=== PATIENT | female | born 1950 | race Caucasian/White ===

== ENCOUNTER 2025-02-23 08:06 | Observation (INO) ==
--- NOTE | 2025-01-24 14:16 | PAT Medication Instructions ---
Medication Instructions Date of Service January 24, 2025 Home Medications Medication Instructions Recorded celecoxib 100 mg capsule (Celebrex) 100 mg PO BID #60 caps 01/04/25 oxycodone 5 mg tablet 5 mg PO Q6 PRN pain #30 tabs 01/17/25 cholecalciferol (vitamin D3) 25 mcg (1,000 unit) tablet 1,000 units PO QAM fluoxetine 40 mg capsule (Prozac) 40 mg PO QAM hydroxyzine HCl 50 mg tablet 100 mg PO HS baclofen 20 mg tablet 40 mg PO HS fluoxetine 20 mg capsule 20 mg PO QAM rosuvastatin 10 mg tablet 40 mg PO QAM spironolactone 50 mg tablet 50 mg PO UD hydrochlorothiazide 25 mg tablet 25 mg PO BID PRN swelling celecoxib 100 mg capsule (Celebrex) 100 mg PO BID oxycodone 5 mg tablet 5 mg PO Q6 PRN pain lorazepam 0.5 mg tablet 0.25 mg PO DAILY PRN Anxiety Continue as directed lorazepam 0.5 mg tablet 0.25 mg PO DAILY PRN Anxiety (if needed) ASK your surgeon for instructions celecoxib 100 mg capsule (Celebrex) 100 mg PO BID DO NOT take the morning of surgery cholecalciferol (vitamin D3) 25 mcg (1,000 unit) tablet 1,000 units PO QAM hydrochlorothiazide 25 mg tablet 25 mg PO BID PRN swelling spironolactone 50 mg tablet 50 mg PO UD Take morning of surgery With a small sip of water, OTHERWISE NOTHING TO EAT OR DRINK AFTER MIDNIGHT: fluoxetine 40 mg capsule (Prozac) 40 mg PO QAM fluoxetine 20 mg capsule 20 mg PO QAM rosuvastatin 10 mg tablet 40 mg PO QAM oxycodone 5 mg tablet 5 mg PO Q6 PRN pain (if needed) Take evening before surgery hydroxyzine HCl 50 mg tablet 100 mg PO HS baclofen 20 mg tablet 40 mg PO HS hydrochlorothiazide 25 mg tablet 25 mg PO BID PRN swelling (if needed) oxycodone 5 mg tablet 5 mg PO Q6 PRN pain (if needed) Other Notes If you have any questions please call us at [phone] or [phone] or [phone] or [phone]
--- NOTE | 2025-01-26 12:17 | Anesthesiology Consultation ---
Date of Service January 26, 2025 Assessment & Plan (1) Encounter for pre-operative examination: - awaiting 01/29/25 S PCP note. Chart Review Chart Review: Pending: Refer to Additional Notes / Consult section and Patient seen in Pre Admission Testing Teaching & Discussion Pre-Anesthesia Teaching/Discussion Notes: Instructed NPO after midnight before surgery, except medications with 15 cc of water. Medication instructions provided according to the PAT guidelines. History Surgery Operation Date: 02/16/25 13:00 Proposed Procedures p Left Total Knee Arthroplasty - Harvey Oliva, Height/Weight Height: 5 ft 5 in Weight: 77.3 kg Allergies Allergy/AdvReac Type Severity Reaction Status Date / Time adhesive Allergy Intermediate Rash Verified 01/26/25 12:15 buspirone Allergy Intermediate rash, Verified 01/26/25 12:15 flushing codeine Allergy Intermediate itching, Verified 01/24/25 13:21 anxiety amoxicillin Allergy Mild itching, Verified 01/26/25 12:15 nausea and vomiting clavulanic acid Allergy Mild itching, Verified 01/26/25 12:15 nausea and vomiting latex Allergy Mild itching at Verified 01/24/25 13:21 site quinine Allergy Mild itching, Verified 01/26/25 12:15 nausea and vomiting Quinolones Allergy Mild itching, Verified 01/26/25 12:16 nausea and vomiting sulfamethoxazole Allergy Mild itching, Verified 01/26/25 12:15 nausea, vomiting, anxiety trimethoprim Allergy Mild itching, Verified 01/26/25 12:15 nausea, vomiting, anxiety venlafaxine Allergy Mild rash, Verified 01/26/25 12:15 flushing shellfish derived AdvReac Intermediate VIOLENTLY Verified 01/24/25 13:21 ILL atorvastatin AdvReac Mild arthralgias Verified 01/26/25 12:15 Medications Home Medications Medication Instructions Recorded Confirmed Last Taken cholecalciferol (vitamin D3) 25 1,000 units PO QAM 06/10/19 01/24/25 07/20/21 mcg (1,000 unit) tablet fluoxetine 40 mg capsule (Prozac) 40 mg PO QAM 07/15/21 01/24/25 06/12/22 06:00 hydroxyzine HCl 50 mg tablet 100 mg PO HS 07/15/21 01/24/25 06/11/22 21:00 baclofen 20 mg tablet 40 mg PO HS 04/25/22 01/24/25 06/11/22 21:00 fluoxetine 20 mg capsule 20 mg PO QAM 04/25/22 01/24/25 06/12/22 06:00 rosuvastatin 10 mg tablet 40 mg PO QAM 04/25/22 01/24/25 06/11/22 21:00 hydrochlorothiazide 25 mg tablet 25 mg PO BID PRN swelling 05/15/24 01/24/25 Unknown oxycodone 5 mg tablet 5 mg PO Q6 PRN pain #30 tabs 01/17/25 01/24/25 Unknown lorazepam 0.5 mg tablet 0.25 mg PO DAILY PRN Anxiety 01/24/25 01/24/25 Unknown ibuprofen 100 mg tablet 200 mg PO Q6H PRN Pain 01/26/25 01/26/25 Unknown Past Medical History Medical History (Updated 01/26/25 @ 12:46 by Lilibeth Kirby PA-C) Cough inhaler was prescribed for this, no asthma dx Degenerative disc disease Depression Fluid retention in legs prn HCTZ-last use several days ago with resolution GERD (gastroesophageal reflux disease) infrequent-diet correlation per pt History of anesthesia complications awareness during colonoscopy-patient notes she is naturally a red-head Hyperlipidemia Loss of smell 2 months ago-reports PCP felt nothing additional was needed Osteoarthritis Overactive bladder Palpitations hx of > anxiety related > no further issues Prediabetes no meds Scoliosis Seasonal allergies Patient denies h/o stroke, seizures, heart attack, heart failure, HTN, blood clots/DVTs or blood transfusions. Exercise / Class Metabolic Activity III < 4 Walking/Shop/Light housework (denies chest discomfort or shortness of breath with usual activities) Past Family History Family History Sister Breast cancer Lung cancer Family history of diabetes mellitus Mother Osteoporosis Hypertension Father Hypertension Other No family history of adverse response to anesthesia Denies family history of Colon cancer Ovarian cancer Prostate cancer Past Surgical History Surgical History H/O colonoscopy History of anesthesia reaction awareness during colonoscopy History of cholecystectomy History of hysterectomy History of reverse total replacement of right shoulder joint (05/2022) History of surgery of liver cyst removed from liver-benign per pt History of tonsillectomy and adenoidectomy History of tooth extraction Past Anesthesia History No Family Hx of Anesthesia Complications History of PONV No Hx of PONV and Hx of Motion Sickness Social History Smoking Status: Former smoker tobacco type: cigarettes Do You Dip or Chew Tobacco: No Smoking End Date: 1984 Hx Alcohol Use: No Alcohol type: hard liquor alcohol intake frequency: holidays/special occasions only Hx Substance Use: No substance use type: does not use Review of Systems Patient denies chest pain, shortness of breath, dyspnea on exertion, snoring, witnessed apneas, fever, chills, cough, wheezing, or palpitations. Physical Exam Vital Signs Vitals BP 126/71 P 84 TEMP 98.0 SP02 95% on RA RESP 18 Physical Patient resting comfortably in chair in no acute distress, alert and oriented, responding appropriately throughout visit Full cervical extension range of motion without pain TMD 3.5 finger breadths Mallampati Score 2 Dentition: partial tooth left upper side and several crowns, denies chipped or loose teeth, implants or bridges Lungs: normal respiratory effort. Good air movement, clear throughout to auscultation, no adventitious breath sounds Cardiac: regular rate and rhythm, no murmurs noted Carotid arteries: negative bruit bilat Lab Results Anesthesia Preop Results Results Anesthesia Widget: WBC 7.43 K/ul (4.8-10.8) 01/26/25 Hgb 13.1 g/dl (12.0-16.0) 01/26/25 Hct 38.8 % (37.0-47.0) 01/26/25 Plt 269 K/uL (130-400) 01/26/25 Na 142 mmol/L (136-145) 01/26/25 K 4.2 mmol/L (3.5-5.1) 01/26/25 Cl 104 mmol/L (98-107) 01/26/25 CO2 30 mmol/L (21-32) 01/26/25 BUN 24 mg/dl (6-23) H 01/26/25 Creat 0.88 mg/dl (0.6-1.2) 01/26/25 Glucose Level 86 mg/dl (70-99(Fasting)) 01/26/25 PT 10.3 Seconds (9.0-12.0) 01/26/25 PTT 26 Seconds (21-31) 01/26/25 INR 0.9 (0.9-1.1) 01/26/25 Blood Type O Positive 01/26/25 Antibody Screen NEGATIVE 01/26/25 Testing Electrocardiogram Date: 01/26/25 NSR, rate 78 bpm Old anterolateral infarct cited on or before 05/15/24 EKG No significant change vs 05/15/24 EKG Chest X-Ray Date: 01/26/25 No active lung lesion noted. No other abnormalities noted. Echocardiogram Date: 07/13/23 EF 60-64% Normal LV wall motion Grade I diastolic dysfunction Mild aortic valve sclerosis, no aortic stenosis Mild tricuspid regurgitation Borderline cLVH Other Testing Head and neck CTA 05/15/24 Unremarkable CTA of the neck. No large vessel occlusion. No intracranial aneurysm.
--- NOTE | 2025-02-21 12:20 | History & Physical Report ---
Date of Service February 21, 2025 Assessment & Plan (1) Osteoarthritis of left knee: We will proceed with a left total knee arthroplasty. Postoperatively, she will be started on aspirin for DVT prophylaxis and kept overnight in the hospital for postop medical management. She plans to use energy physical therapy upon discharge. History of Present Illness Chief Complaint: Osteoarthritis of the left knee Primary Care Provider: Ginacaron YinDO Rodriguez is a pleasant 75-year-old female who has been dealing with chronic increasing left knee pain. X-ray showed some lateral compartmental arthritis. She is really struggling with lateral joint line pain. She recently lost her mother and her sister. She has been dealing with estate sales. She had injections of her knee with minimal relief. She is to the point where she is almost nonambulatory. She was sent for an MRI. The MRI shows advanced osteoarthritis mostly in the lateral compartment of the left knee. After failed conservative treatment, she has elected to proceed with a left total knee arthroplasty. Allergies Allergy/AdvReac Type Severity Reaction Status Date / Time adhesive Allergy Intermediate Rash Verified 01/26/25 12:15 buspirone Allergy Intermediate rash, Verified 01/26/25 12:15 flushing codeine Allergy Intermediate itching, Verified 01/24/25 13:21 anxiety amoxicillin Allergy Mild itching, Verified 01/26/25 12:15 nausea and vomiting clavulanic acid Allergy Mild itching, Verified 01/26/25 12:15 nausea and vomiting latex Allergy Mild itching at Verified 01/24/25 13:21 site quinine Allergy Mild itching, Verified 01/26/25 12:15 nausea and vomiting Quinolones Allergy Mild itching, Verified 01/26/25 12:16 nausea and vomiting sulfamethoxazole Allergy Mild itching, Verified 01/26/25 12:15 nausea, vomiting, anxiety trimethoprim Allergy Mild itching, Verified 01/26/25 12:15 nausea, vomiting, anxiety venlafaxine Allergy Mild rash, Verified 01/26/25 12:15 flushing shellfish derived AdvReac Intermediate VIOLENTLY Verified 01/24/25 13:21 ILL atorvastatin AdvReac Mild arthralgias Verified 01/26/25 12:15 Home Medications Medication Instructions Recorded Confirmed Type cholecalciferol (vitamin D3) 25 1,000 units PO QAM 06/10/19 01/24/25 History mcg (1,000 unit) tablet fluoxetine 40 mg capsule (Prozac) 40 mg PO QAM 07/15/21 01/24/25 History hydroxyzine HCl 50 mg tablet 100 mg PO HS 07/15/21 01/24/25 History baclofen 20 mg tablet 40 mg PO HS 04/25/22 01/24/25 History fluoxetine 20 mg capsule 20 mg PO QAM 04/25/22 01/24/25 History rosuvastatin 10 mg tablet 40 mg PO QAM 04/25/22 01/24/25 History hydrochlorothiazide 25 mg tablet 25 mg PO BID PRN swelling 05/15/24 01/24/25 History oxycodone 5 mg tablet 5 mg PO Q6 PRN pain #30 tabs 01/17/25 01/24/25 Rx lorazepam 0.5 mg tablet 0.25 mg PO DAILY PRN Anxiety 01/24/25 01/24/25 History ibuprofen 100 mg tablet 200 mg PO Q6H PRN Pain 01/26/25 01/26/25 History phentermine 37.5 mg tablet 37.5 mg PO DAILY 01/31/25 01/31/25 History Past Med/Surg History Problem List Encounter for pre-operative examination Greater trochanteric bursitis of both hips DJD (degenerative joint disease), lumbar Scoliosis Degenerative disc disease Bilateral hip pain Back pain Mixed hyperlipidemia Metabolic syndrome Depression with anxiety Palpitations Hyperlipidemia Obesity (Chronic) Hair loss Medical History Loss of smell 2 months ago-reports PCP felt nothing additional was needed GERD (gastroesophageal reflux disease) infrequent-diet correlation per pt History of anesthesia complications awareness during colonoscopy-patient notes she is naturally a red-head Hyperlipidemia Prediabetes no meds Osteoarthritis Palpitations hx of > anxiety related > no further issues Cough inhaler was prescribed for this, no asthma dx Scoliosis Degenerative disc disease Overactive bladder Depression Fluid retention in legs prn HCTZ-last use several days ago with resolution Seasonal allergies Surgical History History of reverse total replacement of right shoulder joint (05/2022) History of anesthesia reaction awareness during colonoscopy History of tooth extraction History of tonsillectomy and adenoidectomy H/O colonoscopy History of cholecystectomy History of surgery of liver cyst removed from liver-benign per pt History of hysterectomy Family History Sister Breast cancer Lung cancer Family history of diabetes mellitus Mother Osteoporosis Hypertension Father Hypertension Other No family history of adverse response to anesthesia Denies family history of Colon cancer Ovarian cancer Prostate cancer Social History Smoking Status: Former smoker Tobacco Type: Cigarettes Smoking End Date: 1984; Second Hand Exposure: No; Do You Dip or Chew Tobacco: No; Tobacco Cessation Education Requested by Patient: No Hx Alcohol Use: No Hx Substance Use: No Preferred Language: Romanian Communication Ability: Effective Visual Impairment: Limited Hearing Ability: Normal Etl Data Architect Required: No Beliefs That Will Affect Care: None marital status: Current Living Situation: Spouse current occupational status: retired Other Information That Helps Us Care for You: No Feels Safe at Home: Yes Safety Concerns: Feels Safe At This Time caffeine: Yes Dental Care, Regularly: Yes Physical Activity Frequency: Does not Exercise Seatbelt Use: always Sunscreen Use: Yes Assistive Devices: Denture - Upper and Glasses Assistive Devices Comment: partial upper denture Review of Systems All systems reviewed & are unremarkable except as noted in HPI & below. Physical Exam On physical exam of the left knee, she has slight varus deformity. Tenderness palpation of the distal lateral femoral condyle and over the lateral joint line.. Constitutional WD/WN, vitals as above Eyes PERRL, conjunctivae normal, anicteric sclerae ENMT external ear and nose normal, oropharynx normal Neck trachea midline, no thyromegaly Respiratory normal respiratory effort Cardiovascular RRR, no murmur, no edema Gastrointestinal (Abdomen) normal bowel sounds, soft, nontender, no hepatosplenomegaly Psychiatric A+Ox3, euthymic affect Results & Data Results & Data Laboratory Results . Diagnostic Findings MRI of the left knee shows advanced lateral compartmental arthritis with joint space narrowing osteophyte formation.. PG Care Time/CCT Total # of Minutes Spent Total Time Spent with Patient: Total time spent is greater than 50% in coordination of care (as documented) at patient's floor/unit and/or counseling patient: Coding Level of Care Code None Diagnoses Osteoarthritis of left knee M17.12
[~2025-02-23 08:06] MED LIST: ACETAMINOPHEN 500 MG TAB PO SCH; ALLERGY Noted to ORDERED Medication SCH; BUPIVACAINE 0.5 % 5 MG/1 ML PF 10ML VIAL ONE; FAMOTIDINE 20 MG TAB PO SCH; GABAPENTIN 300 MG CAP PO SCH; LR 500ML BOLUS, THEN 15ML/HR IV SCH; LR 60ML/HR IV SCH; ROPIV 0.5% 246mg, Ketorolac 30mg, EPINEPHrine 0.5mg in NSS INFIL SCH; ROPIVACAINE 0.5% 5 MG/ML 30 ML VIAL ONE; TRANEXAMIC ACID 1,000 MG **IV Intra-op IV SCH; TRANEXAMIC ACID 1,000 MG **IV Pre-op IV SCH; dexAMETHasone**PF** 10 MG/ML VIAL IV SCH
--- OUTSIDE RECORDS SUMMARY | 2025-02-23 08:41 | External Medical Summary ---
Author Name Unknown Address Unknown Organization [id number]:[facility] [place] [address] [place] [address] Laboratory Report Ordering Provider Test Date Status ROMINA DC 02/16/2025 08:19:39 Final Observation Date Value Abnormality Reference (Units ) Status Vitamin B12 02/16/2025 08:19:39 [id number] (pg/mL) Final Performing Location [facility] [place] [address] [place] [id number]
--- OUTSIDE RECORDS SUMMARY | 2025-02-23 08:41 | External Medical Summary | Summary of Care ---
Author Name Unknown Organization [facility] Address [address] [facility] [place] [place] [address] Phone [phone] Care Team Providers Care Senior Supply Chain Analyst Name Role Phone Gina Yin DO Primary Care Provider [phone] Reason for Visit * Reason Comments Acute Reports she was to [facility] surgery this AM but fell sick a couple days ago. This started TuesdayNausea, loss of appetite, heart palpitations, sweating, lightheaded, some SOB. Encounter Details Date Type Department Care Team (Late st Contact Info) Description 02/16/2025 7:20 AM EDT Office Visit Family [facility] [place] [address] [facility] [place] [address] Gina Yin DO [address] [place] [address] Nausea*; Loss of taste; Palpitations; Dry mouth Allergies Active Allergy Reactions Criticality Noted Date Comments Adhesive Tape Low 06/12/2022 Other reaction(s): LOCAL SKIN IRRITATIONS Alpha Neeta Quinazolines 5 Amoxicillin Low 06/12/2022 Other reaction(s): ITCHING, N&V Atorvastatin Low 06/12/2022 Other reaction(s): JOINT PAIN Buspirone 11/10/2004 Epinephrine Hcl (Racemic) 11/21/2004 Latex Low 06/12/2022 Other reaction(s): itching at site Macrolides And Ketolides 11/21/2004 Methylparaben 11/10/2004 Morphine And Codeine 11/21/2004 Quinolones Low 06/12/2022 Other reaction(s): ITCHINESS, N&V Shellfish-Derived Products High Other reaction(s): VIOLENTLY ILL Sulfonylureas 11/21/2004 sulfa drugs, bactrim nausea Tetracyclines & Related 11/21/2004 Venlafaxine 12/03/2004 documented as of this encounter (statuses as of 02/16/2025) Medications Multiple Vitamins-Minerals (HAIR SKIN AND NAILS FORMULA) TABS Take 1 Tab by mouth daily. Active Vitamin D 50 MCG (2000 UT) Oral Capsule Take 1 Capsule by mouth in the morning. Active Magnesium 100 MG Oral Capsule Take 1 Capsule by mouth in the morning. Active Clobetasol Propionate 0.05 % External Ointment (Temovate)Indicati ons:Nail dystrophy,Hand dermatitis Apply to skin around fingernails twice daily for two weeks, then apply once daily every Wednesday, Wednesday, Wednesday 60 g 5 11/03/19 24 Active hydroCHLOROthiazid e 25 MG Oral Tablet (Hydrodiuril)Indic ations:Leg swelling Take 1 Tablet by mouth 2 times a day in the morning and at bedtime as needed for Other (swelling). 90 Tablet 3 01/13/20 24 Active FLUoxetine HCl 20 MG Oral Capsule (PROzac)Indication s:JAYLEN (generalized anxiety disorder) TAKE ONE CAPSULE BY MOUTH EVERY MORNING. 90 Capsule 2 06/15/20 24 Active FLUoxetine HCl 40 MG Oral Capsule (PROzac)Indication s:JAYLEN (generalized anxiety disorder) Take 1 Capsule by mouth daily. Total dose is 60mg daily 90 Capsule 2 06/15/20 24 Active Rosuvastatin Calcium 40 MG Oral Tablet (Crestor)Indicatio ns:Mixed hyperlipidemia TAKE 1 TABLET BY MOUTH EVERY MORNING 90 Tablet 1 08/25/20 24 Active traMADol HCl 50 MG Oral Tablet (Ultram)Indication s:Chronic pain of left knee Take 1 Tablet by mouth every 8 hours as needed for Pain, Severe. 30 Tablet 01/11/20 25 Active hydrOXYzine Pamoate 50 MG Oral Capsule (Vistaril)Indicati ons:JAYLEN (generalized anxiety disorder) TAKE TWO CAPSULES BY MOUTH DAILY AT BEDTIME 180 Capsule 01/17/20 25 Active Baclofen 20 MG Oral TabletIndications: JAYLEN (generalized anxiety disorder) TAKE ONE TABLET IN THE MORNING AND 1 AT BEDTIME 180 Tablet 01/17/20 25 Active Phentermine HCl 37.5 MG Oral CapsuleIndications :Class 1 obesity without serious comorbidity with body mass index (BMI) of 30.0 to 30.9 in adult, unspecified obesity type Take 1 Capsule by mouth in the morning. 30 Capsule 02/08/20 25 Active Topiramate 25 MG Oral Tablet (Topamax)Indicatio ns:Class 1 obesity without serious comorbidity with body mass index (BMI) of 30.0 to 30.9 in adult, unspecified obesity type Take 1 Tablet by mouth in the morning and 1 Tablet before bedtime. 60 Tablet 5 02/08/20 25 Active documented as of this encounter (statuses as of 02/16/2025) Active Problems Problem Noted Date Diagnosed Date Arthritis of knee 11/29/2024 Overweight (BMI 25.0-29.9) 11/29/2024 Prediabetes 12/06/2023 Overview: Per Prediabetes protocol JAYLEN (generalized anxiety disorder) 07/26/2020 Diastasis recti 06/25/2020 Vitamin D deficiency 05/28/2020 Mixed hyperlipidemia 05/28/2020 Obesity, Class I, BMI 30.0-34.9 (see actual BMI) 05/28/2020 Rosacea 05/05/2005 Palpitations 11/25/2004 BENIGN HYPERTENSION 11/14/2004 Chronic rhinitis 11/14/2004 documented as of this encounter (statuses as of 02/16/2025) Resolved Problems Problem Noted Date Diagnosed Date Resolved Date COPD, group A, by GOLD 2017 classification 05/01/2024 01/10/2025 Overview: Per COPD GOLD Classification COPD, group A, by GOLD 2017 classification 03/06/2024 04/04/2024 Overview: Per COPD GOLD Classification Centrilobular emphysema 11/08/2023 03/1 06/2025 Nasal lesion 11/26/2022 06/07/2023 Anterior dislocation of right shoulder 09/28/2022 09/28/2022 Back pain 09/28/2022 09/28/2022 Chronic kidney disease, stage 3a 04/08/2021 01/10/2025 Overview: Per CKD protocol documented as of this encounter (statuses as of 02/16/2025) Immunizations Name Administration Dates Next Due COVID-19 mRNA, LNP-s, No Pre serve, 2-Dose Series (Moderna) 12/31/2020,11/28/2020 COVID-19 mRNA, LNP-s, PF, 18 + or 6-11Yrs (Moderna) 01/23/2021,12/23/2020 COVID-19, LNP-s, No Preserve , Ga-sucrose, Ages 12+ (Pfizer) 01/23/2021,12/23/2020 COVID-19, MRNA-LNP, PF, 30 M CG/0.3 mL, 12 YRS AND ABOVE, IM (PFIZER-Comirnaty) 09/25/2024 Pneumococcal Conjugate Vacc, 13 Valent (Prevnar) 05/28/2020 Pneumococcal Conjugate Vacci ne, 20-valent ([id number]) 11/19/2022 RSV Vac., Recomb, Adjuvant, PF,0.5 Ml (Arexvy) 07/21/2023 Season Influenza, Quad, PF, Adjuvanted, 65+ Yrs, IM (FLUAD) 07/09/2020 Seasonal Influenza Virus Vac cine, Unspecified Formulation 07/22/2018,07/23/2014,09/14/2006,2004,09/05/2004 Seasonal Influenza, High Dos e, Trivalent, PF, IM (Fluzone HD) 08/23/2024,07/24/2019,07/22/2018,2013,09/14/2006,08/11/2005,09/05/2004 Seasonal Influenza, PF, 6 M & above, IM , (FluLaval or Fluzone) 07/19/2021 Seasonal Influenza, Quadrivalent, ID ,09/14/2006,08/11/2005,2003 TDAP (age 10 and older)(Boostrix) 05/28/2020 Zoster Vaccine Recombinant (Shingrix) 08/27/2020 documented as of this encounter Social History Tobacco Use Types Packs/Day Years Used Date Smoking Tobacco: Former Cigarettes 1 20 1 0 - 1989 Smokeless Tobacco: Never Alcohol Use Standard Drinks/Week Comments Yes 0 (1 standard drink = 0.6 oz pur e alcohol) rare AUDIT-C Answer Date Recorded Frequency of Alcohol Consumption Monthly or less 05/28/2020 Average Number of Drinks 1 or 2 020 Frequency of Binge Drinking Less than monthly PHQ-2 Answer Date Recorded PHQ Adult Total Score 0 03/01/2024 Hunger Vital Sign Answer Date Recorded Within the past 12 months, y ou worried that your food would run out before you got the money to buy more. Never true 03/01/20 24 Within the past 12 months, t he food you bought just didn't last and you didn't have money to get more. Never true 03/01/2024 Childcare Answer Date Recorded Do you feel overwhelmed with taking care of a child, family member or friend? No 03/01/2024 Does your family need help f inding childcare? (Household - for ages 0-17 years) Not on file 03/01/2024 Clothing Answer Date Recorded Have you been unable to get clothing when it was really needed? No 03/01/2024 Is your family able to get c lothes or diapers when needed? (Household - for ages 0-17 years) Not on file 03/01/2024 Personal Safety Answer Date Recorded Do you feel unsafe or have concerns for your saf ety? No 03/01/2024 Do you have concerns for you r family's safety? (Household - for ages 0-17 years) Not on file 03/01/2024 Utilities Answer Date Recorded Do you have trouble paying y our heating, water, or electric bill? No 03/01/2024 Is your family able to pay t he heat, water, or electric bill? (Household - for ages 0-17 years) Not on file 03/01/2024 Does your family have access to good internet? (Household - for ages 0-17 years) Not on file 03/01/2024 Employment Status Answer Date Recorded Are you unemployed or without regular income? No 03/01/2024 Does the household have a re gular source of income? (Household - for ages 0-17 years) Not on file 03/01/2024 Social Connections Answer Date Recorded How often do you feel lonely or isolated from th ose around you? Never 03/01/2024 Financial Resource Strain Answer Date R ecorded Do you have any trouble payi ng for your medications, or do you think you might in the future? No 03/01/2024 Does your family have troubl e paying for medicine? (Household - for ages 0-17 years) Not on file 03/01/2024 Transportation Needs Answer Date Record ed READ ONLY Do you have troubl e getting a ride to medical visits or work? Never True 03/01/2024 Does your family have a hard time getting a ride to doctors visits? (Household - for ages 0-17 years) Not on file 03/01/2024 Has lack of transportation k ept you from medical appointments, meetings, work, or from getting things needed for daily living? Check all that apply. (Adult - for ages 18 years and over) Not on file 03/01/2024 Do you (or your family) have trouble finding or paying for a ride (transportation)? (Household - for ages 0-17 years) Not on file 03/01/2024 Housing Stability Answer Date Recorded Do you currently live in a s helter or have no steady place to sleep at night? No 03/01/2024 READ ONLY Do you think you a re at risk of becoming homeless? No 03/01/2024 Does your family worry about paying for your home or becoming homeless? (Household - for ages 0-17 years) Not on file 0 03/01/2024 Are you homeless or worried that you might be in the future? (Adult - for ages 18 years and over) Not on file Are you (or your family) reymundo eless or worried that you might be in the future? (Household - for ages 0-17 years) Not on file Food Insecurity Answer Date Recorded Do you need food for this week? No 03/01/2024 Are you able to get enough f ood for your family? (Household - for ages 0-17 years) Not on file 03/01/2024 Does your family need food t his week? (Household - for ages 0-17 years) Not on file 03/01/2024 Do you always have enough fo od for your family? (Household - for ages 0-17 years) Not on file 03/01/2024 Food Insecurity Answer Date Recorded Within the past 12 months, y ou worried that your food would run out before you got the money to buy more. Never true 03/01/20 24 Within the past 12 months, t he food you bought just didn't last and you didn't have money to get more. Never true 03/01/2024 Do you need food for this week? 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 on file Not on file Not on file documented as of this encounter Last Filed Vital Signs Vital Sign Reading Time Taken Comments Blood Pressure 131/71 02/16/2025 7:17 AM EDT Pulse 70 02/16/2025 7:17 AM EDT Temperature 36.7 °C (98 °F) 02/16/2025 7:17 AM EDT Respiratory Rate 18 02/16/2025 7:17 AM EDT Oxygen Saturation 96% 02/16/2025 7:17 AM EDT Inhaled Oxygen Concentration - - Weight 73.8 kg (162 lb 9.6 oz) 02/16/2025 7:17 A M EDT Height 162.6 cm (5' 4") 02/16/2025 7:17 AM EDT Body Mass Index 27.91 02/16/2025 7:17 AM EDT documented in this encounter Progress Notes * Gina Yin, - 02/16/2025 10:12 AM EDT Subjective Jennifer Miles is a 75 year old female. Chief Complaint Patient presents with Acute Reports she was to have surgery this AM but fell sick a couple days ago. This started Wednesday Nausea, loss of appetite, heart palpitations, sweating, lightheaded, some SOB. History of Present Illness Jennifer Miles is a 75 year old female who presents with loss of taste and dry mouth. She has been experiencing a loss of taste and dry mouth for several months. Her mouth feels devoid of moisture, and food often turns into a 'sickening' taste, causing her to spit it out. This has significantly impacted her ability to cook, as she cannot discern flavors. Earlier this week, she began feeling nauseous and experienced chills followed by feeling hot. She also reports new symptoms of heart palpitations, sweating, and lightheadedness. No diarrhea or vomiting, but she mentions a little indigestion. There have been no recent changes in her medication regimen. She is concerned about the possibility of having COVID-19 due to her symptoms. She also notes slight shortness of breath, particularly noticeable when gardening, but it does not hinder her activities. Additionally, she mentions an issue with her nails, which have been 'disintegrating on the edges' after a recent visit to a nail salon. She has never had issues with her nails before and suspects thenail field installation technician was overly aggressive. Results PMH: Patient Active Problem List Diagnosis BENIGN HYPERTENSION Chronic rhinitis Palpitations Vitamin D deficiency Mixed hyperlipidemia Obesity, Class I, BMI 30.0-34.9 (see actual BMI) Rosacea Diastasis recti JAYLEN (generalized anxiety disorder) Prediabetes Arthritis of knee Overweight (BMI 25.0-29.9) Current Outpatient Medications Medication Sig Dispense Refill Multiple Vitamins-Minerals (HAIR SKIN AND NAILS FORMULA) TABS Take 1 Tab by mouth daily. Vitamin D 50 MCG (2000 UT) Oral Capsule Take 1 Capsule by mouth in the morning. Magnesium 100 MG Oral Capsule Take 1 Capsule by mouth in the morning. Clobetasol Propionate 0.05 % External Ointment (Temovate) Apply to skin around fingernails twice daily for two weeks, then apply once daily every Wednesday, Wednesday, Wednesday 60 g 5 hydroCHLOROthiazide 25 MG Oral Tablet (Hydrodiuril) Take 1 Tablet by mouth 2 times a day in the morning and at bedtime as needed for Other (swelling). 90 Tablet 3 FLUoxetine HCl 20 MG Oral Capsule (PROzac) TAKE ONE CAPSULE BY MOUTH EVERY MORNING. 90 Capsule 2 FLUoxetine HCl 40 MG Oral Capsule (PROzac) Take 1 Capsule by mouth daily. Total dose is 60mg daily 90 Capsule 2 Rosuvastatin Calcium 40 MG Oral Tablet (Crestor) TAKE 1 TABLET BY MOUTH EVERY MORNING 90 Tablet 1 traMADol HCl 50 MG Oral Tablet (Ultram) Take 1 Tablet by mouth every 8 hours as needed for Pain, Severe. 30 Tablet 0 hydrOXYzine Pamoate 50 MG Oral Capsule (Vistaril) TAKE TWO CAPSULES BY MOUTH DAILY AT BEDTIME 180 Capsule 0 Baclofen 20 MG Oral Tablet TAKE ONE TABLET IN THE MORNING AND 1 AT BEDTIME 180 Tablet 0 Phentermine HCl 37.5 MG Oral Capsule Take 1 Capsule by mouth in the morning. 30 Capsule 0 Topiramate 25 MG Oral Tablet (Topamax) Take 1 Tablet by mouth in the morning and 1 Tablet before bedtime. 60 Tablet 5 No current facility-administered medications for this visit. Past Medical History: Diagnosis Date Anterior dislocation of right shoulder 09/28/2022 Anxiety Arthritis Asthma due to seasonal allergies Back pain Fluid retention Hepatic cyst resolved, removed 2015, [facility] Hypercholesterolemia Lung nodule Pneumonia, organism unspecified([id number]) Past Surgical History: Procedure Laterality Date PARTIAL HYSTERECTOMY fibroids-ovaries remain REMOVE GALLBLADDER REMOVE TONSILS & ADENOIDS, UNDER 12 REPAIR BLADDER & VAGINA, CYSTOCELE SURGERY FOR LIVER ABSCESS/CYST 2016 large hepatic cyst removal Review of patient's allergies indicates: Allergen Reactions Shellfish-Derived Products Other reaction(s): VIOLENTLY ILL Alpha Neeta Quinazolines Buspirone Epinephrine Hcl (Racemic) Macrolides And Ketolides Methylparaben Morphine And Codeine Sulfonylureas sulfa drugs, bactrim nausea Tetracyclines & Related Venlafaxine Adhesive Tape Other reaction(s): LOCAL SKIN IRRITATIONS Amoxicillin Other reaction(s): ITCHING, N&V Atorvastatin Other reaction(s): JOINT PAIN Latex Other reaction(s): itching at site Quinolones Other reaction(s): ITCHINESS, N&V Family History Problem Relation Name Age of Onset Hypertension Mother Stroke Mother Hypertension Father Coronary Artery disease Father Breast Cancer Sister Eunice 39 Hyperlipidemia Sister Poonam Torre Lung cancer Sister Poonam Torre Hypertension Daughter Hypertension Daughter Breast Cancer Grandmother (Maternal) No Known Problems Grandfather (Maternal) Lymphoma Grandmother (Paternal) No Known Problems Grandfather (Paternal) Family Status Relation Status Mo Fa Alive Sis Alive Sis Luis M Alive Luis M Alive MGMA MGFA PGMA PGFA Social History Socioeconomic History Marital status: Spouse name: Not on file Number of children: Not on file Years of education: Not on file Highest education level: Not on file Occupational History Occupation: retired floarist Tobacco Use Smoking status: Former Current packs/day: 0.00 Average packs/day: 1 pack/day for 20.0 years (20.0 ttl pk-yrs) Types: Cigarettes Start date: 1969 Quit date: 1989 Years since quittin.3 Smokeless tobacco: Never Vaping Use Vaping status: Never Used Substance and Sexual Activity Alcohol use: Yes Comment: rare Drug use: Never Sexual activity: Yes Partners: Male Other Topics Concern Not on file Social History Narrative No pets No mold Oil heating Social Needs Financial Resource Strain: Low Risk (03/01/2024) Financial Resource Strain Do you have any trouble paying for your medications, or do you think you might in the future? (Adult - for ages 18 years and over): No Does your family have trouble paying for medicine? (Household - for ages 0-17 years): Not on file Food Insecurity: No Food Insecurity (03/01/2024) Food Insecurity Worried About Running Out of Food in the Last Year: Never true Ran Out of Food in the Last Year: Never true Do you need food for this week? (Adult - for ages 18 years and over): No Transportation Needs: No Transportation Needs (03/01/2024) Transportation Needs Do you have trouble getting a ride to medical visits or work? (Adult - for ages 18 years and over):Never True Does your family have a hard time getting a ride to doctors’ visits? (Household - for ages 0-17 years): Not on file Has lack of transportation kept you from medical appointments, meetings, work, or from getting things needed for daily living? Check all that apply. (Adult - for ages 18 years and over): Not on file Do you (or your family) have trouble finding or paying for a ride (transportation)? (Household - for ages 0-17 years): Not on file Social Connections: Socially Integrated (03/01/2024) Social Connections How often do you feel lonely or isolated from those around you? (Adult - for ages 18 years and over): Never Housing Stability: Low Risk (03/01/2024) Housing Stability Do you currently live in a nursing home or have no steady place to sleep at night? (Adult - for ages 18 years and over): No Do you think you are at risk of becoming homeless? (Adult - for ages 18 years and over): No Does your family worry about paying for your home or becoming homeless? (Household - for ages 0-17 years): Not on file Are you homeless or worried that you might be in the future? (Adult - for ages 18 years and over): Not on file Are you (or your family) homeless or worried that you might be in the future? (Household - for ages0-17 years): Not on file Objective BP 131/71 | Pulse 70 | Temp 98 °F (36.7 °C) (Tympanic) | Resp 18 | Ht 5' 4" (1.626 m) | Wt 162 lb9.6 oz (73.8 kg) | LMP (LMP Unknown) | SpO2 96% | BMI 27.91 kg/m² | BSA 1.83 m² Physical Exam Vitals and nursing note reviewed. Constitutional: General: She is not in acute distress. Appearance: Normal appearance. She is not ill-appearing or diaphoretic. HENT: Right Ear: Tympanic membrane, ear canal and external ear normal. Left Ear: Ear canal and external ear normal. Mouth/Throat: Pharynx: No oropharyngeal exudate or posterior oropharyngeal erythema. Comments: Mild dryness noted near lips Eyes: General: Right eye: No discharge. Left eye: No discharge. Extraocular Movements: Extraocular movements intact. Conjunctiva/sclera: Conjunctivae normal. Pupils: Pupils are equal, round, and reactive to light. Cardiovascular: Rate and Rhythm: Normal rate and regular rhythm. Pulmonary: Effort: Pulmonary effort is normal. Breath sounds: Normal breath sounds. Abdominal: General: Bowel sounds are normal. There is no distension. Palpations: Abdomen is soft. There is no mass. Tenderness: There is abdominal tenderness (very mild tenderness in mid abdomin). Musculoskeletal: Cervical back: Neck supple. Lymphadenopathy: Cervical: No cervical adenopathy. Skin: General: Skin is warm and dry. Neurological: General: No focal deficit present. Mental Status: She is alert and oriented to person, place, and time. Psychiatric: Mood and Affect: Mood normal. Behavior: Behavior normal. ASSESSMENT/PLAN: Nausea (Primary) - COMPREHENSIVE METABOLIC PANEL; Future; Expected date: 02/16/2025 - CBC WITH WBC DIFFERENTIAL; Future; Expected date: 02/16/2025 - HEMOGLOBIN A1C; Future; Expected date: 02/16/2025 - TSH WITH FREE T4 IF INDICATED; Future; Expected date: 02/16/2025 - VITAMIN B12; Future; Expected date: 02/16/2025 - LIPASE; Future; Expected date: 02/16/2025 - SARS-COV-2 (COVID-19), NAAT Loss of taste - COMPREHENSIVE METABOLIC PANEL; Future; Expected date: 02/16/2025 - CBC WITH WBC DIFFERENTIAL; Future; Expected date: 02/16/2025 - HEMOGLOBIN A1C; Future; Expected date: 02/16/2025 - TSH WITH FREE T4 IF INDICATED; Future; Expected date: 02/16/2025 - VITAMIN B12; Future; Expected date: 02/16/2025 - LIPASE; Future; Expected date: 02/16/2025 - SARS-COV-2 (COVID-19), NAAT - ANTINUCLEAR ANTIBODY (FRANCHESCA) EIA SCREEN WITH REFLEX AB QUANT; Future; Expected date: 02/16/2025 - ZINC; Future; Expected date: 02/16/2025 Palpitations - COMPREHENSIVE METABOLIC PANEL; Future; Expected date: 02/16/2025 - CBC WITH WBC DIFFERENTIAL; Future; Expected date: 02/16/2025 - HEMOGLOBIN A1C; Future; Expected date: 02/16/2025 - TSH WITH FREE T4 IF INDICATED; Future; Expected date: 02/16/2025 - VITAMIN B12; Future; Expected date: 02/16/2025 - LIPASE; Future; Expected date: 02/16/2025 - SARS-COV-2 (COVID-19), NAAT Dry mouth - ANTINUCLEAR ANTIBODY (FRANCHESCA) EIA SCREEN WITH REFLEX AB QUANT; Future; Expected date: 02/16/2025 - ZINC; Future; Expected date: 02/16/2025 - SSA/RO ANTIBODY; Future; Expected date: 02/16/2025 - SSB/LA ANTIBODY; Future; Expected date: 02/16/2025 Follow Up: Return in about 3 months (around 05/18/2025). Assessment & Plan Nausea and palpitations Nausea and palpitations with mild indigestion. No vomiting, diarrhea, or recent medication changes.Topamax not initiated. - Order blood work to evaluate potential causes. - Consider Topamax side effects if initiated. Shortness of breath Mild shortness of breath during gardening. Lungs clear, no wheezing or chest pain. Symptoms not limiting. Loss of taste Persistent loss of taste for months. Possible COVID-19. - Order COVID-19 PCR test. - Provide supportive care if COVID-19 positive, including isolation and hydration. Dry mouth Persistent dry mouth associated with loss of taste. Gina Yin DO All, some, or none of the text in this note may have been generated using an ambient documentation service, depending on the visit type or situation. If the ambient documentation service was used, I discussed the use of a device to record and summarize our discussion today. All persons present during the encounter consented to its use. documented in this encounter Nursing Notes * Odessa Bailon - 02/16/2025 7:18 AM EDT Chief Complaint Patient presents with Acute Reports she was to have surgery this AM but fell sick a couple days ago. This started Wednesday Nausea, loss of appetite, heart palpitations, sweating, lightheaded, some SOB. documented in this encounter Plan of Treatment Upcoming Encounters Date Type Department Care Team (Late st Contact Info) Description 03/22/2025 12:00 PM EDT Office Visit [facility] Jaja Talbert [id number] [place] [phone] Gina Yin DO [address] [place] [phone] Pending Results Name Type Priority Associated Diagnoses Date /Time COMPREHENSIVE METABOLIC PANEL Lab Routine Nausea Loss of taste Palpitations 02/16/2025 8:19 AM EDT CBC WITH WBC DIFFERENTIAL Lab Routine Nausea Loss of taste Palpitations 02/16/2025 8:19 AM EDT HEMOGLOBIN A1C Lab Routine Nausea Loss of taste Palpitations 02/16/2025 8:19 AM EDT TSH WITH FREE T4 IF INDICATED Lab Routine Nausea Loss of taste Palpitations 02/16/2025 8:19 AM EDT VITAMIN B12 Lab Routine Nausea Loss of taste Palpitations 02/16/2025 8:19 AM EDT LIPASE Lab Routine Nausea Loss of taste Palpitations 02/16/2025 8:19 AM EDT SARS-COV-2 (COVID-19), NAAT Lab Routine Nausea Loss of taste Palpitations 02/16/2025 7:49 AM EDT ANTINUCLEAR ANTIBODY (FRANCHESCA) EIA SCREEN WITH REFLEX AB QUANT Lab Routine Loss of taste Dry mouth 02/16/2025 8:19 AM EDT ZINC Lab Routine Loss of taste Dry mouth 02/16/2025 8:19 AM EDT Scheduled Orders Name Type Priority Associated Diagnoses Orde r Schedule COMPREHENSIVE METABOLIC PANEL Lab Routine Nausea Loss of taste Palpitations Expected: 02/16/2025 (Approximate), Expires: 02/16/2026 CBC WITH WBC DIFFERENTIAL Lab Routine Nausea Loss of taste Palpitations Expected: 02/16/2025 (Approximate), Expires: 02/16/2026 HEMOGLOBIN A1C Lab Routine Nausea Loss of taste Palpitations Expected: 02/16/2025 (Approximate), Expires: 02/16/2026 TSH WITH FREE T4 IF INDICATED Lab Routine Nausea Loss of taste Palpitations Expected: 02/16/2025 (Approximate), Expires: 02/16/2026 VITAMIN B12 Lab Routine Nausea Loss of taste Palpitations Expected: 02/16/2025 (Approximate), Expires: 02/16/2026 LIPASE Lab Routine Nausea Loss of taste Palpitations Expected: 02/16/2025 (Approximate), Expires: 02/16/2026 ANTINUCLEAR ANTIBODY (FRANCHESCA) EIA SCREEN WITH REFLEX AB QUANT Lab Routine Loss of taste Dry mouth Expected: 02/16/2025 (Approximate), Expires: 02/16/2026 ZINC Lab Routine Loss of taste Dry mouth Expected: 02/16/2025 (Approximate), Expires: 02/16/2026 Health Maintenance Due Date Last Done Comments DXA Scan 1950 Fecal Occult Blood Test 01/03/1997 Sigmoidoscopy 01/03/1997 Adult Wellness Visit 01/03/2018 Zoster Vaccines (2 of 2) 10/22/2020 08/27/2020 Cologuard 06/05/2024 06/05/2021, 08/0 02/2021, 05/29/2021 Depression Screening 03/01/2025 03/01/2024 COVID-19 Vaccine (8 - 2024-25 season) 2025 09/25/2024, 01/23/2021, 01/23/2021, Additional history exists Mammogram 09/19/2025 09/19/2024, 08/26, 09/09/2022, Additional history exists HbA1c 11/29/2025 11/29/2024, 10/25, 04/01/2023, Additional history exists GFR 01/26/2026 01/26/2025, 02/2025, 09/28/2023, Additional history exists Albumin/Creatinine Ratio 04/05/2026 04/05/2023, 02/2022 Lipid Panel 11/29/2029 11/29/2024, 02/2023, 04/01/2023, Additional history exists DTap/Tdap Vaccines (2 - Td or Tdap) 05/28/2030 05/28/2020 Colonoscopy 07/21/2031 07/21/2021 Colorectal Cancer Screening 07/21/2031 Pneumococcal Vaccine: 50+ Years Completed 11/19/2022, 05/28/2020 Influenza Vaccine (FLU shot) Completed , 07/19/2021, 07/09/2020, Additional history exists HPV (Gardasil) Vaccine Aged Out No lo nger eligible based on patient's age to complete this topic Hepatitis B Vaccine Aged Out No longe r eligible based on patient's age to complete this topic MENINGOCOCCAL (MENACTRA/MENVEO) Aged Out No longer eligible based on patient's age to complete this topic Meningitis B Vaccine (Bexsero/Trumemba) Aged Out No longer eligible based on patient's age to complete this topic documented as of this encounter Medical Devices Not on filedocumented as of this encounter Visit Diagnoses Diagnosis Nausea- Primary Nausea alone Loss of taste Disturbances of sensation of smell and taste Palpitations Dry mouth Disturbance of salivary secretion documented in this encounter Care Teams Senior Supply Chain Analyst Relationship Specialty Start Date End Date Gina Yin DO [address] [facility] [place] [address] PCP - General Family Medicine 09/25/24 documented as of this encounter
--- OUTSIDE RECORDS SUMMARY | 2025-02-23 08:41 | External Medical Summary | Summary of Care ---
Author Name Unknown Organization [facility] Address [address] [place] [address] Phone [phone] Care Team Providers Care Soaker Name Role Phone Gina Yin DO Primary Care Provider +1- [phone] Reason for Visit * Reason Onset Date Comments FYI 02/15/2025 Encounter Details Date Type Department Care Team (Late st Contact Info) Description 02/15/2025 Telephone Family Practice [facility] [place] [address] [facility] [place] [address] Gina Yin DO [address] [place] [address] FYI Allergies Active Allergy Reactions Criticality Noted Date [...] as of this encounter (statuses as of 02/19/2025) Medications Multiple Vitamins-Minerals (HAIR SKIN AND NAILS [...] as of this encounter (statuses as of 02/19/2025) Active Problems Problem Noted Date Diagnosed Date Arthritis of knee 11/29/2024 Overweight (BMI 25.0-29.9) 11/29/2024 Prediabetes 12/06/2023 Overview: Per Prediabetes protocol JAYLEN (generalized anxiety disorder) 07/26/2020 Diastasis recti 06/25/2020 Vitamin D deficiency 05/28/2020 Mixed hyperlipidemia 05/28/2020 Obesity, Class I, BMI 30.0-34.9 (see actual BMI) 05/28/2020 Rosacea 05/05/2005 Palpitations 11/25/2004 BENIGN HYPERTENSION 11/14/2004 Chronic rhinitis 11/14/2004 documented as of this encounter (statuses as of 02/19/2025) Resolved Problems Problem Noted Date Diagnosed Date Resolved Date COPD, group A, by GOLD 2017 classification 05/01/2024 01/10/2025 Overview: Per COPD GOLD Classification COPD, group A, by GOLD 2017 classification 03/06/2024 04/04/2024 Overview: Per COPD GOLD Classification Centrilobular emphysema 11/08/2023 03/06/2025 Nasal lesion 11/26/2022 06/07/2023 Anterior dislocation of right shoulder 09/28/2022 09/28/2022 Back pain 09/28/2022 09/28/2022 Chronic kidney disease, stage 3a 04/08/2021 01/10/2025 Overview: Per CKD protocol documented as of this encounter (statuses as of 02/19/2025) Immunizations Name Administration Dates Next Due COVID-19 mRNA, LNP-s, No Pre serve, 2-Dose Series (Moderna) 12/31/2020,11/28/2020 COVID-19 mRNA, LNP-s, PF, 18 + or 6-11Yrs (Moderna) 01/23/2021,12/23/2020 COVID-19, LNP-s, No Preserve , Ga-sucrose, Ages 12+ (Pfizer) 01/23/2021,12/23/2020 COVID-19, MRNA-LNP, PF, 30 M CG/0.3 mL, 12 YRS AND ABOVE, IM (PFIZER-Comirnaty) 09/25/2024 Pneumococcal Conjugate Vacc, 13 Valent (Prevnar) 05/28/2020 Pneumococcal Conjugate Vacci ne, 20-valent ([id number]) 11/19/2022 RSV Vac., Recomb, Adjuvant, PF,0.5 Ml [...] Smoking Tobacco: Former Cigarettes 1 20 1 970 - 1989 Smokeless Tobacco: Never Alcohol Use [...] on file documented as of this encounter Miscellaneous Notes * Telephone Encounter - Lin Pressley OSA - 02/19/2025 2:09 PM EDT Patient has been notified of the message. Patient has no further questions. * Telephone Encounter - Dianne Lang LPN - 02/19/2025 1:45 PM EDT Attempted to call patient, there was no answer, left voicemail. When patient returns call, ok for MARIANO to relay message, please refer to below documentation. If needed, can transfer to dedicated nurse line. MyG sent * Telephone Encounter - Gina Yin DO - 02/19/2025 12:47 PM EDT Covid was negative * Telephone Encounter - Patti Bartholomew LPN - 02/16/2025 4:40 PM EDT Pt calling in asking if Covid results came back. Advised pt the results have not come back yet. Pt asking if someone can call her once the results are in. * Telephone Encounter - Tiffany Vicente OSA - 02/16/2025 4:36 PM EDT Pt is calling in requesting to speak with a nurse please * Telephone Encounter - Hue Louise LPN - 02/15/2025 1:50 PM EDT See other encounter * Telephone Encounter - Delmy Cummings OSA - 02/15/2025 1:31 PM EDT Reason for patient's call: cancel surgery Caller was transferred to NO ANSWER at the nurse line. Pt states it is urgent. She was due for surgery 02/16. documented in this encounter Plan of Treatment Upcoming Encounters Date Type Department Care Team (Late st Contact Info) Description 03/22/2025 12:00 PM EDT Office Visit [facility] [address] [place] [address] Gina Yin DO [address] [place] [address] Health Maintenance Due Date Last Done Comments DXA Scan 1950 Fecal Occult Blood Test 01/03/1997 Sigmoidoscopy 01/03/1997 Adult Wellness Visit 01/03/2018 Zoster Vaccines (2 of 2) 10/22/2020 08/27/2020 Cologuard 06/05/2024 06/05/2021, 08/0 02/2021, 05/29/2021 Depression Screening 03/01/2025 03/01/2024 COVID-19 Vaccine ( season) 2025 09/25/2024, 01/23/2021, 01/23/2021, Additional history exists Mammogram 09/19/2025 09/19/2024, 08/26, 09/09/2022, Additional history exists GFR 02/16/2026 02/16/2025, 04/0 01/2025, 11/29/2024, Additional history exists HbA1c 02/16/2026 02/16/2025, 02/0 02/2025, 11/06/2023, Additional history exists Albumin/Creatinine Ratio 04/05/2026 04/05/2023, 12/0 02/2022 Lipid Panel 11/29/2029 11/29/2024, 12/0 02/2023, 04/01/2023, Additional history exists DTap/Tdap Vaccines [...] Not on filedocumented as of this encounter Care Teams Soaker Relationship Specialty Start Date End Date Gina Yin DO [address] [facility] [place] [address] PCP - General Family Medicine 09/25/24 documented as of this encounter
--- OUTSIDE RECORDS SUMMARY | 2025-02-23 08:41 | External Medical Summary | Summary of Care ---
Author Name Unknown Organization [facility] Address [address] [place] [address] Phone [phone] Care Team Providers Care Property Clerk Name Role Phone Gina Yin DO Primary Care Provider +1- [phone] Reason for Visit * Reason Onset Date Comments FYI 02/15/2025 Encounter Details Date Type Department Care Team (Late st Contact Info) Description 02/15/2025 Telephone Family Practice [facility] [address] [place] [address] Gina Yin DO [address] [place] [address] FYI Allergies Active Allergy Reactions [...] (Prevnar) 05/28/2020 Pneumococcal Conjugate Vacci ne, 20-valent ([id number]) 11/19/2022 RSV Vac., Recomb, Adjuvant, PF,0.5 Ml [...] encounter Miscellaneous Notes * Telephone Encounter - Patti Bartholomew LPN [...] Description 03/22/2025 12:00 PM EDT Office Visit Family Practice [address] [place] [id number] Gina Yin DO [address] [place] [address] Health Maintenance Due Date Last Done Comments DXA Scan 1950 Fecal Occult Blood Test 01/03/1997 Sigmoidoscopy 01/03/1997 Adult Wellness Visit 01/03/2018 Zoster Vaccines (2 of 2) 10/22/2020 08/27/2020 Cologuard 06/05/2024 06/05/2021, 02/2021, 05/29/2021 Depression Screening 03/01/2025 03/01/2024 COVID-19 [...] filedocumented as of this encounter Care Teams Property Clerk Relationship Specialty Start Date End Date Gina Yin DO [address] [facility] [place] [address] PCP - General Family Medicine 09/25/24 documented as of this encounter
--- OUTSIDE RECORDS SUMMARY | 2025-02-23 08:41 | External Medical Summary | Summary of Care ---
Author Name Unknown Organization [facility] Address [address] [place] [address] Phone [phone] Care Team Providers Care Hydraulic Rubbish Compactor Mechanic Name Role Phone Gina Yin DO Primary Care Provider +1- [phone] Reason for Visit * Reason Onset Date Comments FYI 02/15/2025 Encounter Details Date Type Department Care Team (Late st Contact Info) Description 02/15/2025 Telephone Family Practice [facility] [place] [address] [facility] [place] [address] Gina Yin DO [address] [place] [address] FYI Allergies Active Allergy Reactions [...] (Prevnar) 05/28/2020 Pneumococcal Conjugate Vacci ne, 20-valent ([id number]) 11/19/2022 RSV Vac., Recomb, Adjuvant, PF,0.5 Ml [...] Description 03/22/2025 12:00 PM EDT Office Visit [facility] Jaja Talbert [address] [place] [address] Gina Yin DO [address] [place] [address] Health Maintenance Due Date Last Done Comments [...] filedocumented as of this encounter Care Teams Hydraulic Rubbish Compactor Mechanic Relationship Specialty Start Date End Date Gina Yin DO [address] [facility] [place] [address] PCP - General Family Medicine 09/25/24 documented as of this encounter
--- OUTSIDE RECORDS SUMMARY | 2025-02-23 08:41 | External Medical Summary ---
Author Name Unknown Address Unknown Organization [id number]:LABORATORY [facility] [place] - [address] [place] [address] Laboratory Report Ordering Provider Test Date Status ROMINA DC 02/16/2025 08:19:39 Final Observation Date Value Abnormality Reference (Units ) Status SYNC LEUKOCYTES IN BLOOD BY AUTOMATED COUNT 02/16/2025 08:19:39 7.09 4.00-10.80 (K/uL) Final Segs 02/16/2025 08:19:39 69.4 40.0-75.0 (%) Final Lymphs % 02/16/2025 08:19:39 18.1 18.0-42.0 (%) Final Monos 02/16/2025 08:19:39 8.3 1.0-11.0 (%) Final Eosinophils 02/16/2025 08:19:39 3.4 0.0-6.0 (%) Final Basos 02/16/2025 08:19:39 0.7 0.0-2.0 (%) Final Immature Granulocyte, Percent 02/16/2025 08:19:39 0.1 0.0-2.0 (%) Final Absolute Segs 02/16/2025 08:19:39 4.92 1.80-7.70 (K/uL) Final Lymphs, absolute 02/16/2025 08:19:39 1.28 1.00-4.80 (K/ul) Final Monos, Abs 02/16/2025 08:19:39 0.59 0.00-1.10 (K/uL) Final Eos, Abs 02/16/2025 08:19:39 0.24 0.00-0.70 (K/uL) Final Basos, Abs 02/16/2025 08:19:39 0.05 0.00-0.20 (K/uL) Final Immature Granulocytes, Number 02/16/2025 08:19:39 0.01 0.00-0.20 (K/uL) Final Performing Location LABORATORY [facility] [place] - [address] [facility] [address]
--- OUTSIDE RECORDS SUMMARY | 2025-02-23 08:41 | External Medical Summary | Summary of Care ---
Author Name Unknown Organization [facility] Address [address] [place] [address] Phone [phone] Care Team Providers Care Malted Milk Supervisor Name Role Phone Gina Yin DO Primary Care Provider +1- [phone] Reason for Visit * Reason Onset Date Comments FYI 02/15/2025 Encounter Details Date Type Department Care Team (Late st Contact Info) Description 02/15/2025 Telephone Family Practice [facility] [address] [place] [address] Gina Yin DO [address] [place] [address] FYI Allergies Active Allergy Reactions [...] (Prevnar) 05/28/2020 Pneumococcal Conjugate Vacci ne, 20-valent ([id number]) 11/19/2022 RSV Vac., Recomb, Adjuvant, PF,0.5 Ml [...] Description 03/22/2025 12:00 PM EDT Office Visit [facility] J[address] [place] [address] Gina Yin DO [address] [place] [address] Health Maintenance Due Date Last Done Comments [...] filedocumented as of this encounter Care Teams Malted Milk Supervisor Relationship Specialty Start Date End Date Gina Yin DO [address] [facility] [place] [address] PCP - General Family Medicine 09/25/24 documented as of this encounter
--- OUTSIDE RECORDS SUMMARY | 2025-02-23 08:41 | External Medical Summary ---
Author Name Unknown Address Unknown Organization [id number]:[facility] [place] [facility] [address] [address] [facility] [address] Laboratory Report Ordering Provider Test Date Status ROMINA DC 02/16/2025 08:19:39 Final Observation Date Value Abnormality Reference (Units ) Status WBC, Total 02/16/2025 08:19:39 7.09 4.00-10.80 (K/uL) Final RBC 02/16/2025 08:19:39 4.40 3.85-5.15 (M/uL) Final Hemoglobin 02/16/2025 08:19:39 12.9 12.0-15.3 (g/dL) Final HCT 02/16/2025 08:19:39 38.3 36.0-45.2 (%) Final MCV 02/16/2025 08:19:39 87.0 81.5-97.5 (fL) Final MCH 02/16/2025 08:19:39 29.3 27.0-34.0 (pg) Final MCHC 02/16/2025 08:19:39 33.7 32.0-36.0 (g/dL) Final RDW 02/16/2025 08:19:39 12.9 11.5-15.5 (%) Final Platelets 02/16/2025 08:19:39 298 140-400 (K/uL) Final MPV 02/16/2025 08:19:39 10.2 6.6-11.1 (fL) Final Nucleated erythrocytes/100 leukocytes [Ratio] in Blood by Automated count 02/16/2025 08:19:39 0 <=0 (/100 WBCs) Final Performing Location [facility] [address] [facility] [address]
--- OUTSIDE RECORDS SUMMARY | 2025-02-23 08:41 | External Medical Summary | Summary of Care ---
Author Name Unknown Organization [facility] Address [address] [place] [address] Phone [phone] Care Team Providers Care Rod Puller Name Role Phone Gina Yin DO Primary Care Provider +1- [phone] Reason for Visit * Reason Onset Date Comments FYI 02/15/2025 Encounter Details Date Type Department Care Team (Late st Contact Info) Description 02/15/[address] [facility] [address] [place] [address] Gina Yin DO [address] [place] [address] FYI Allergies Active Allergy Reactions [...] (Prevnar) 05/28/2020 Pneumococcal Conjugate Vacci ne, 20-valent ([id number]) 11/19/2022 RSV Vac., Recomb, Adjuvant, PF,0.5 Ml [...] Office Visit Family Practice [address] [place] [address] [id number] Gina Yin DO [address] [place] [address] Health Maintenance Due Date Last Done Comments [...] filedocumented as of this encounter Care Teams Rod Puller Relationship Specialty Start Date End Date Gina Yin DO [address] [facility] [place] [address] PCP - General Family Medicine 09/25/24 documented as of this encounter
--- OUTSIDE RECORDS SUMMARY | 2025-02-23 08:41 | External Medical Summary ---
Author Name Unknown Address Unknown Organization [id number]:[facility] [place] [address] [facility] [address] Laboratory Report Ordering Provider Test Date Status ROMINA DC 02/16/2025 08:19:39 Final Observation Date Value Abnormality Reference (Units ) Status HbA1C 02/16/2025 08:19:39 6.0 Above high normal 4. 0-5.6 (%) Final The use of HbA1c to monitor glycemic status is based on normal hemoglobin and HbA composition. This test should not be used in patients with abnormal hemoglobin that affects the half life of the red blood cell or the in vivo glycation rates. Glucose, estimated average 02/16/2025 08:19:39 126 Above high normal <126 (mg/dL) Nagi ibrahim Performing Location [facility] [place] [address] [facility] [address] [facility] [address]
--- OUTSIDE RECORDS SUMMARY | 2025-02-23 08:41 | External Medical Summary ---
Author Name Unknown Address Unknown Organization : Laboratory Report Ordering Provider Test Date Status ROMINA DC 02/16/2025 08:19:39 Final Observation Date Value Abnormality Reference (Units ) Status Zinc, level 02/16/2025 08:19:39 74 60-130 ( mcg/dL) Final This test was developed and its analytical performance
characteristics have been determined by [employer] [place], [place]. It has
not been cleared or approved by the U.S. Food and Drug
Administration. This assay has been validated pursuant
to the CLIA regulations and is used for clinical
purposes.

Test Performed at:
[facility]
[address] [facility] [place] [address]
Steve Theodore M.D., Ph.D.,Director of Laboratories Performing Location
--- OUTSIDE RECORDS SUMMARY | 2025-02-23 08:41 | External Medical Summary ---
Author Name Unknown Address Unknown Organization K01:[place] [place] [address] [place] [address] Laboratory Report Ordering Provider Test Date Status ROMINA DC 02/16/2025 08:19:39 Final Observation Date Value Abnormality Reference (Units ) Status Lipase 02/16/2025 08:19:39 64 Above high normal 13 -60 (U/L) Final Performing Location LABORATORY [facility] - [address] [place] [address]
--- OUTSIDE RECORDS SUMMARY | 2025-02-23 08:41 | External Medical Summary | Summary of Care ---
Author Name Unknown Organization [facility] Address [address] [place] [address] Phone [phone] Care Team Providers Care Mens Locker Room Attendant Name Role Phone YinGina Beena Primary Care Provider +1- [phone] Reason for Visit * Reason Comments Outpatient Testing Encounter Details Date Type Department Care Team (Late st Contact Info) Description 02/16/2025 8:40 AM EDT Laboratory Laboratory [facility] [place] [address] [facility] [place] [address] [place], [facility] [address] [place] [address] Nausea; Loss of taste; Palpitations; Dry mouth Allergies [...] (Prevnar) 05/28/2020 Pneumococcal Conjugate Vacci ne, 20-valent ([id number]) 11/19/2022 RSV Vac., Recomb, Adjuvant, PF,0.5 Ml [...] on file documented as of this encounter Plan of Treatment Upcoming Encounters Date Type Department Care Team (Late st Contact Info) Description 03/22/2025 12:00 PM EDT [facility] [address] [address] [place] [address] Gina Yin DO [address] [place] [address] Pending Results Name Type Priority Associated Diagnoses [...] of taste Palpitations 02/16/2025 8:19 AM EDT ANTINUCLEAR ANTIBODY (FRANCHESCA) EIA SCREEN WITH REFLEX AB QUANT Lab Routine Loss of taste Dry mouth 02/16/2025 8:19 AM EDT ZINC Lab Routine Loss of taste Dry mouth 02/16/2025 8:19 AM EDT CBC Lab Routine Nausea Loss of taste Palpitations 02/16/2025 8:19 AM EDT DIFFERENTIAL, AUTOMATED Lab Routine Nausea Loss of taste Palpitations 02/16/2025 8:19 AM EDT ANTINUCLEAR ANTIBODY (FRANCHESCA) SCREEN, MAURILIO Lab Routine Loss of taste Dry mouth 02/16/2025 8:19 AM EDT Health Maintenance Due Date Last Done Comments DXA Scan 1950 Fecal Occult Blood Test 01/03/1997 Sigmoidoscopy 01/03/1997 Adult Wellness Visit 01/03/2018 Zoster Vaccines (2 of 2) 10/22/2020 08/27/2020 Cologuard 06/05/2024 06/05/2021, 0 02/2021, 05/29/2021 Depression Screening 03/01/2025 03/01/2024 COVID-19 Vaccine ( season) 2025 09/25/2024, 01/23/2021, 01/23/2021, Additional history exists Mammogram 09/19/2025 09/19/2024, 08/26, 09/09/2022, Additional history exists HbA1c 11/29/2025 11/29/2024, 10/25, 04/01/2023, Additional history exists GFR 01/26/2026 01/26/2025, 0 02/2025, 09/28/2023, Additional history exists Albumin/Creatinine Ratio 04/05/2026 04/05/2023, 120 02/2022 Lipid Panel 11/29/2029 11/29/2024, 120 02/2023, 04/01/2023, Additional history exists DTap/Tdap Vaccines [...] as of this encounter Visit Diagnoses Diagnosis Nausea Nausea alone Loss of taste Disturbances of sensation of smell and taste Palpitations Dry mouth Disturbance of salivary secretion documented in this encounter Care Teams Mens Locker Room Attendant Relationship Specialty Start Date End Date Gina Yin DO [address] [place] [address] PCP - General Family Medicine 09/25/24 documented as of this encounter
--- OUTSIDE RECORDS SUMMARY | 2025-02-23 08:41 | External Medical Summary | Summary of Care ---
Author Name Unknown Organization [facility] Address [address] [place] [address] Phone [phone] Care Team Providers Care Dip Painter Name Role Phone Gina Yin DO Primary Care Provider +1- [phone] Reason for Visit * Reason Onset Date Comments FYI 02/15/2025 Encounter Details Date Type Department Care Team (Late st Contact Info) Description 02/15/2025 Telephone Family Practice [facility] [address] [place] [address] Gina Yin DO [address] [place] [address] FYI Allergies Active Allergy Reactions [...] (Prevnar) 05/28/2020 Pneumococcal Conjugate Vacci ne, 20-valent ([id number]) 11/19/2022 RSV Vac., Recomb, Adjuvant, PF,0.5 Ml [...] Description 03/22/2025 12:00 PM EDT [facility] [address] [place] [address] Gina Yin DO [address] [place] [address] Health Maintenance Due Date Last Done Comments [...] filedocumented as of this encounter Care Teams Dip Painter Relationship Specialty Start Date End Date Gina Yin DO [address] [facility] [place] [address] PCP - General Family Medicine 09/25/24 documented as of this encounter
[2025-02-23] MEDS ORDERED: MIDAZOLAM HCL 1 MG/ML 2ML VIAL ONE (08:42)
[2025-02-23] MEDS ORDERED: PROPOFOL IV EMULSION 10 MG/ML 20 ML VIAL IV ONE (08:42)
[2025-02-23] MEDS ORDERED: LIDOCAINE 2% 2 ML VIAL/AMP(20MG/ML) INFIL ONE (08:42)
[2025-02-23] MEDS ORDERED: ONDANSETRON INJ 2 MG/ML 2 ML VIAL ONE ×2 (08:42→11:02)
--- OUTSIDE RECORDS SUMMARY | 2025-02-23 08:42 | External Medical Summary ---
Author Name Unknown Address Unknown Organization K01[place] [facility] [place] [address] [place] [address] Laboratory Report Ordering Provider Test Date Status ROMINA DC 02/16/2025 08:19:39 Final Observation Date Value Abnormality Reference (Units ) Status TSH 02/16/2025 08:19:39 1.61 0.27-4.20 (uIU/mL) Final Performing Location [facility] [place] [address] [place] [address]
--- OUTSIDE RECORDS SUMMARY | 2025-02-23 08:42 | External Medical Summary ---
Author Name Unknown Address Unknown Organization K01:[facility] [place] [address] [facility] [address] Laboratory Report Ordering Provider Test Date Status ROMINA DC 02/16/2025 08:19:39 Final Observation Date Value Abnormality Reference (Units ) Status Nuclear IgG Ab [Ratio] in Serum by Immunoassay 02/16/2025 08:19:39 Negative Negative Final DNA double strand Ab [Presence] in Serum 02/16/2025 08:19:39 Negative Negative Final DOUBLE STRANDED DNA VALUE - [facility] 02/16/2025 08:19:39 1.1 <20 (IU/mL) Final Extractable nuclear Ab [Presence] in Serum 02/16/2025 08:19:39 Negative Negative Final Nuclear IgG Ab [Ratio] in Serum by Immunoassay 02/16/2025 08:19:39 0.3 <0.7 (Ratio) Final Screening is based on detect ion of the following antibodies: dsDNA, U1-GLASS BEAD MAKER (RNP70, A, C), SS-A/Ro, SS-B / La, Keeley-1, Scl-70, Centromere B proteins and Sm proteins. In conjunction with clinical findings, this can aid in the diagnosis of systemic lupus erythematosous (SLE), mixed connective tissue disease (MCTD), Sjogren's syndrome, scleroderma and polymyositis/dermatomyositis.
However, a negative result does not rule out systemic rheumatic or other autoimmune disease. If clinically suspected, further evaluation and testing may be necessary. Please consult with Rheumatology Department.
Methodology: Fluorescent Enzyme Immunoassay. Performing Location LABORATORY [address] [facility] [address]
--- OUTSIDE RECORDS SUMMARY | 2025-02-23 08:42 | External Medical Summary | Summary of Care ---
Author Name Unknown Organization [facility] Address [address] [facility] [address] Phone [phone] Care Team Providers Care Rails Developer Name Role Phone Gina Yin DO Primary Care Provider +1- [phone] Reason for Visit * Reason Onset Date Comments Advice 02/15/2025 Encounter Details Date Type Department Care Team (Late st Contact Info) Description 02/15/2025 [facility] [address] [facility] [place] [address] Gina Yin DO [address] [place] [address] Advice Allergies Active Allergy Reactions Criticality Noted Date [...] as of this encounter (statuses as of 02/15/2025) Medications Multiple Vitamins-Minerals (HAIR SKIN AND NAILS [...] as of this encounter (statuses as of 02/15/2025) Active Problems Problem Noted Date Diagnosed Date Arthritis of knee 11/29/2024 Overweight (BMI 25.0-29.9) 11/29/2024 Prediabetes 12/06/2023 Overview: Per Prediabetes protocol JAYLEN (generalized anxiety disorder) 07/26/2020 Diastasis recti 06/25/2020 Vitamin D deficiency 05/28/2020 Mixed hyperlipidemia 05/28/2020 Obesity, Class I, BMI 30.0-34.9 (see actual BMI) 05/28/2020 Rosacea 05/05/2005 Palpitations 11/25/2004 BENIGN HYPERTENSION 11/14/2004 Chronic rhinitis 11/14/2004 documented as of this encounter (statuses as of 02/15/2025) Resolved Problems Problem Noted Date Diagnosed Date [...] as of this encounter (statuses as of 02/15/2025) Immunizations Name Administration Dates Next Due COVID-19 mRNA, LNP-s, No Pre serve, 2-Dose Series (Moderna) 12/31/2020,11/28/2020 COVID-19 mRNA, LNP-s, PF, 18 + or 6-11Yrs (Moderna) 01/23/2021,12/23/2020 COVID-19, LNP-s, No Preserve , Ga-sucrose, Ages 12+ (Pfizer) 01/23/2021,12/23/2020 COVID-19, MRNA-LNP, PF, 30 M CG/0.3 mL, 12 YRS AND ABOVE, IM (PFIZER-Comirnaty) 09/25/2024 Pneumococcal Conjugate Vacc, 13 Valent (Prevnar) 05/28/2020 Pneumococcal Conjugate Vacci ne, 20-valent ([id number]) 11/19/2022 RSV Vac., Recomb, Adjuvant, PF,0.5 Ml [...] encounter Miscellaneous Notes * Telephone Encounter - Hue Louise LPN - 02/15/2025 1:53 PM EDT Called and spoke with patient. Scheduled for tomorrow with PCP * Telephone Encounter - Kenzie Hamilton OSA - 02/15/2025 1:23 PM EDT Reason for patient's call: Patient is advising to speak to nurse on behalf of important matter before surgery No response patient disconnected the line * Telephone Encounter - Gina Yin DO - 02/15/2025 1:05 PM EDT Patient needs to contact surgeons office May need to be seen Blood sugars from most recent labs was normal and A1c just done in nov was normal No additional labs needed at this time * Telephone Encounter - Ignacio Guerrero LPN - 02/15/2025 12:44 PM EDT I contacted the pt's surgeon at [facility] and informed them. The pt stated she has been having nausea, diaphoretic, shaky, thirsty, severe dry mouth for the past 3 days. She said this isn't the first time this has happened. The pt is prediabetic with a family hx of DM 2. Labs pended If agreeable. * Telephone Encounter - Patricia Castillo OSA - 02/15/2025 11:22 AM EDT Patient is calling kenneth, jenniffer , no taste, shakey and sweaty, throat dry Having surgery tomorrow on 02/16/25. Patient would like to know if she should continue with surgery. Please call patient and advise. Patient appointments offered, patient denied appts offered Please call [phone] documented in this encounter Plan of Treatment Upcoming Encounters Date Type Department Care Team (Late st Contact Info) Description 02/16/2025 7:20 AM EDT Office Visit Family Practice [place] [place] [place] [address] Gina Yin DO [address] [place] [address] Health Maintenance Due Date Last Done Comments [...] as of this encounter Visit Diagnoses Diagnosis Screening for diabetes mellitus- Primary Prediabetes Other abnormal glucose documented in this encounter Care Teams Rails Developer Relationship Specialty Start Date End Date Gina Yin DO [address] [facility] [place] [address] PCP - General Family Medicine 09/25/24 documented as of this encounter
--- OUTSIDE RECORDS SUMMARY | 2025-02-23 08:42 | External Medical Summary | Summary of Care ---
Author Name Unknown Organization [facility] Address [address] [place] [address] Phone [phone] Care Team Providers Care Eyelet Row Marker Name Role Phone Gina Yin DO Primary Care Provider +1- [phone] Reason for Visit * Reason Comments Pre-Op Testing Pre op clearance for left total knee placement. No other concerns to discuss. Encounter Details Date Type Department Care Team (Late st Contact Info) Description 02/07/2025 11:00 AM EDT Office Visit Family [facility], [place] [address] [facility] [place] [address] [facility] [address] [facility] [address] Preop examination*; Arthritis of knee; Prediabetes; BENIGN HYPERTENSION; Class 1 obesity without serious comorbidity with body mass index (BMI) of 30.0 to 30.9 in adult, unspecified obesity type Allergies Active Allergy Reactions Criticality Noted Date [...] as of this encounter (statuses as of 02/09/2025) Medications Multiple Vitamins-Minerals (HAIR SKIN AND NAILS [...] bedtime. 60 Tablet 5 02/08/20 25 Active Phentermine HCl 37.5 MG Oral CapsuleIndications :Class 1 obesity without serious comorbidity with body mass index (BMI) of 30.0 to 30.9 in adult, unspecified obesity type Take 1 Capsule by mouth in the morning. 30 Capsule 02/07/20 25 025 Discontin ued(Refil l) documented as of this encounter (statuses as of 02/09/2025) Active Problems Problem Noted Date Diagnosed Date Arthritis of knee 11/29/2024 Overweight (BMI 25.0-29.9) 11/29/2024 Prediabetes 12/06/2023 Overview: Per Prediabetes protocol JAYLEN (generalized anxiety disorder) 07/26/2020 Diastasis recti 06/25/2020 Vitamin D deficiency 05/28/2020 Mixed hyperlipidemia 05/28/2020 Obesity, Class I, BMI 30.0-34.9 (see actual BMI) 05/28/2020 Rosacea 05/05/2005 Palpitations 11/25/2004 BENIGN HYPERTENSION 11/14/2004 Chronic rhinitis 11/14/2004 documented as of this encounter (statuses as of 02/09/2025) Resolved Problems Problem Noted Date Diagnosed Date Resolved Date COPD, group A, by GOLD 2017 classification 05/01/2024 01/10/2025 Overview: Per COPD GOLD Classification COPD, group A, by GOLD 2017 classification 03/06/2024 04/04/2024 Overview: Per COPD GOLD Classification Centrilobular emphysema 11/08/202312/23 Nasal lesion 11/26/2022 06/07/2023 Anterior dislocation of right shoulder 09/28/2022 09/28/2022 Back pain 09/28/2022 09/28/2022 Chronic kidney disease, stage 3a 04/08/2021 01/10/2025 Overview: Per CKD protocol documented as of this encounter (statuses as of 02/09/2025) Immunizations Name Administration Dates Next Due COVID-19 mRNA, LNP-s, No Pre serve, 2-Dose Series (Moderna) 12/31/2020,11/28/2020 COVID-19 mRNA, LNP-s, PF, 18 + or 6-11Yrs (Moderna) 01/23/2021,12/23/2020 COVID-19, LNP-s, No Preserve , Ga-sucrose, Ages 12+ (Pfizer) 01/23/2021,12/23/2020 COVID-19, MRNA-LNP, PF, 30 M CG/0.3 mL, 12 YRS AND ABOVE, IM (PFIZER-Comirnaty) 09/25/2024 Pneumococcal Conjugate Vacc, 13 Valent (Prevnar) 05/28/2020 Pneumococcal Conjugate Vacci ne, 20-valent ([id number]) 11/19/2022 RSV Vac., Recomb, Adjuvant, PF,0.5 Ml [...] Sign Reading Time Taken Comments Blood Pressure 138/80 02/07/2025 11:09 AM EDT Pulse 88 02/07/2025 11:09 AM EDT Temperature 36.3 °C (97.3 °F) 02/07/2025 11:09 AM E DT Respiratory Rate 18 02/07/2025 11:09 AM EDT Oxygen Saturation 97% 02/07/2025 11:09 AM EDT Inhaled Oxygen Concentration - - Weight 77.1 kg (170 lb) 02/07/2025 11:09 AM EDT Height 162.6 cm (5' 4") 02/07/2025 11:09 AM EDT Body Mass Index 29.18 02/07/2025 11:09 AM EDT documented in this encounter Progress Notes * Gina Yin, - 02/07/2025 11:13 AM EDT Subjective Jennifer Miles is a 75 year old female. Chief Complaint Patient presents with Pre-Op Testing Pre op clearance for left total knee placement. No other concerns to discuss. History of Present Illness Jennifer Miles is a 75-year-old female presenting for preoperative evaluation for knee surgery. She has been experiencing significant knee pain, described as 'some of the worst pain I've ever had.' She is currently taking Tylenol for pain management, as anti-inflammatory medications were stopped two days before surgery. Oxycodone has been prescribed for postoperative pain management, but her children are concerned about her taking it due to potential side effects such as sleepiness and constipation. Preoperative testing was completed on January 31, including blood work, an EKG, and a chest x-ray Emile Donaldson, with no reported issues. She has a history of waking up during a colonoscopy due to anesthesia issues but has not had other significant anesthesia problems. She reports a loss of sense of smell for several months, with a greater impact on her sense of taste. She denies significant fluid retention, even during , and is not worried about it affecting her surgery or healing process. She is experiencing a slow weight loss of about five pounds since November, which she finds unsatisfactory. She is interested in exploring additional options to aid weight loss. No shortness of breath, chest pain, dizziness, or lightheadedness. Results RADIOLOGY Chest x-ray: Normal (01/31/2025) DIAGNOSTIC REPORTS EKG: Normal (01/31/2025) PMH: Patient Active Problem List Diagnosis BENIGN HYPERTENSION Chronic rhinitis Palpitations Vitamin D deficiency Mixed hyperlipidemia Obesity, Class I, BMI 30.0-34.9 (see actual BMI) Rosacea Diastasis recti JAYLEN (generalized anxiety disorder) Prediabetes Arthritis of knee Overweight (BMI 25.0-29.9) Current Outpatient Medications Medication Sig Dispense Refill Multiple Vitamins-Minerals (HAIR SKIN AND NAILS FORMULA) TABS Take 1 Tab by mouth daily. Vitamin D 50 MCG (1999 UT) Oral Capsule Take 1 Capsule by [...] mouth in the morning. 30 Capsule 0 No current facility-administered medications for this visit. Past Medical History: Diagnosis Date Anterior dislocation of right shoulder 09/28/2022 Anxiety Arthritis Asthma due to seasonal allergies Back pain Fluid retention Hepatic cyst resolved, removed 2015, [facility] Hypercholesterolemia Lung nodule Pneumonia, organism unspecified(486) [...] Breast Cancer Sister Eunice 39 Hyperlipidemia Sister Alisha Lung cancer Sister Poonam Torre Hypertension Daughter [...] Stability Do you currently live in a fci or have no steady place to sleep [...] ages0-17 years): Not on file Objective BP 138/80 | Pulse 88 | Temp 97.3 °F (36.3 °C) (Tympanic) | Resp 18 | Ht 5' 4" (1.626 m) | Wt 170 lb (77.1 kg) | LMP (LMP Unknown) | SpO2 97% | BMI 29.18 kg/m² | BSA 1.87 m² Physical Exam Vitals and nursing note reviewed. Constitutional: General: She is not in acute distress. Appearance: Normal appearance. She is well-developed. She is not ill-appearing or diaphoretic. HENT: Head: Normocephalic and atraumatic. Right Ear: Tympanic membrane, ear canal and external ear normal. Left Ear: Tympanic membrane, ear canal and external ear normal. Nose: Nose normal. Mouth/Throat: Mouth: Mucous membranes are moist. Pharynx: Oropharynx is clear. No oropharyngeal exudate or posterior oropharyngeal erythema. Eyes: General: No scleral icterus. Extraocular Movements: Extraocular movements intact. Conjunctiva/sclera: Conjunctivae normal. Pupils: Pupils are equal, round, and reactive to light. Neck: Thyroid: No thyromegaly. Cardiovascular: Rate and Rhythm: Normal rate and regular rhythm. Heart sounds: Normal heart sounds. No murmur heard. Pulmonary: Effort: Pulmonary effort is normal. No respiratory distress. Breath sounds: Normal breath sounds. No wheezing, rhonchi or rales. Abdominal: General: Bowel sounds are normal. There is no distension. Palpations: Abdomen is soft. There is no mass. Tenderness: There is no abdominal tenderness. Musculoskeletal: General: No tenderness or deformity. Normal range of motion. Cervical back: Neck supple. Right lower leg: No edema. Left lower leg: No edema. Lymphadenopathy: Cervical: No cervical adenopathy. Skin: General: Skin is warm and dry. Findings: No erythema or rash. Neurological: General: No focal deficit present. Mental Status: She is alert and oriented to person, place, and time. Gait: Gait normal. Psychiatric: Mood and Affect: Mood normal. Behavior: Behavior normal. Thought Content: Thought content normal. Judgment: Judgment normal. ASSESSMENT/PLAN: Preop examination (Primary) Arthritis of knee Prediabetes BENIGN HYPERTENSION Assessment & Plan Preoperative evaluation Chronic pain of left knee Scheduled for knee surgery on February 16, 2025, due to severe chronic pain. Preoperative testing completed without issues. Discussed postoperative pain management and potential side effects of oxycodone. Emphasized importance of pain management for recovery. - Verify with surgeon's office if tramadol can be continued preoperatively. - Ensure preoperative test results are forwarded to surgeon's office and preadmissions. - Discuss postoperative pain management, including oxycodone, and advise on potential side effects. - Encourage adherence to rehabilitation post-surgery for optimal recovery. - Follow up postoperatively to assess recovery and pain management. -obtain copies of preop testing Obesity, Class I Working on weight loss since November with a loss of approximately five pounds. Discussed potentialaddition of Topamax for weight management. - Consider adding Topamax for weight management. Fluid retention Fluid retention not significant and not expected to affect surgery. -no noted on exam today Loss of sense of smell Loss of sense of smell not expected to interfere with surgery. Follow-up Scheduled for knee surgery on February 16, 2025, with an overnight stay postoperatively. Home setup and support discussed. - Call to confirm use of tramadol preoperatively. - Ensure all preoperative test results are sent to necessary parties. Gina Yin, All, some, or none of the text in this note may have been generated using an ambient documentation service, depending on the visit type or situation. If the ambient documentation service was used, I discussed the use of a device to record and summarize our discussion today. All persons present during the encounter consented to its use. 02/09/25 Preop testing reviewed No contraindication to surgery Gina Yin DO documented in this encounter Nursing Notes * Odessa Bailon - 02/07/2025 11:11 AM EDT Chief Complaint Patient presents with Pre-Op Testing Pre op clearance for left total knee placement. No other concerns to discuss. documented in this encounter Plan of Treatment Health Maintenance Due Date Last Done Comments [...] as of this encounter Visit Diagnoses Diagnosis Preop examination- Primary Preoperative examination, unspecified Arthritis of knee Unspecified arthropathy, lower leg Prediabetes Other abnormal glucose BENIGN HYPERTENSION Unspecified essential hypertension Class 1 obesity without serious comorbidity with body mass index (BMI) of 30.0 to 30.9 in adult, unspecified obesity type documented in this encounter Care Teams Eyelet Row Marker Relationship Specialty Start Date End Date Gina Yin DO [address] [facility] [place] [id number] PCP - General Family Medicine 09/25/24 documented as of this encounter
--- OUTSIDE RECORDS SUMMARY | 2025-02-23 08:42 | External Medical Summary | Summary of Care ---
Author Name Unknown Organization [facility] Address [address] [place] [address] Phone [phone] Care Team Providers Care Media Marketing Specialist Name Role Phone Gina Yin DO Primary Care Provider +1- [phone] Reason for Visit * Reason Onset Date Comments Other 02/07/2025 Records Encounter Details Date Type Department Care Team (Late st Contact Info) Description 02/07/2025 Telephone Family Practice [facility] [address] [facility] [place] [address] Gina Yin DO [address] [place] [address] Other (Records ) Allergies Active Allergy Reactions Criticality Noted Date [...] as of this encounter (statuses as of 02/12/2025) Medications Multiple Vitamins-Minerals (HAIR SKIN AND NAILS [...] as of this encounter (statuses as of 02/12/2025) Active Problems Problem Noted Date Diagnosed Date Arthritis of knee 11/29/2024 Overweight (BMI 25.0-29.9) 11/29/2024 Prediabetes 12/06/2023 Overview: Per Prediabetes protocol JAYLEN (generalized anxiety disorder) 07/26/2020 Diastasis recti 06/25/2020 Vitamin D deficiency 05/28/2020 Mixed hyperlipidemia 05/28/2020 Obesity, Class I, BMI 30.0-34.9 (see actual BMI) 05/28/2020 Rosacea 05/05/2005 Palpitations 11/25/2004 BENIGN HYPERTENSION 11/14/2004 Chronic rhinitis 11/14/2004 documented as of this encounter (statuses as of 02/12/2025) Resolved Problems Problem Noted Date Diagnosed Date [...] as of this encounter (statuses as of 02/12/2025) Immunizations Name Administration Dates Next Due COVID-19 mRNA, LNP-s, No Pre serve, 2-Dose Series (Moderna) 12/31/2020,11/28/2020 COVID-19 mRNA, LNP-s, PF, 18 + or 6-11Yrs (Moderna) 01/23/2021,12/23/2020 COVID-19, LNP-s, No Preserve , Ga-sucrose, Ages 12+ (Pfizer) 01/23/2021,12/23/2020 COVID-19, MRNA-LNP, PF, 30 M CG/0.3 mL, 12 YRS AND ABOVE, IM (PFIZER-Comirnaty) 09/25/2024 Pneumococcal Conjugate Vacc, 13 Valent (Prevnar) 05/28/2020 Pneumococcal Conjugate Vacci ne, 20-valent ([id number]) 11/19/2022 RSV Vac., Recomb, Adjuvant, PF,0.5 Ml [...] encounter Miscellaneous Notes * Telephone Encounter - Mary Kate Galvez OSA - 02/12/2025 6:49 AM EDT Faxed note * Telephone Encounter - Gina Yin DO - 02/09/2025 2:03 PM EDT Note addended for clearance * Telephone Encounter - Cande Hinson LPN - 02/09/2025 11:09 AM EDT Spoke with office and left message, they will update pt once they have recommendation for pain medication * Telephone Encounter - Cassie Arnett OSA - 02/09/2025 9:45 AM EDT Pre op testing scanned in however Dr did not give the ok that Jennifer is cleared for the operation. Can you please get with the Dr to get the ok. * Telephone Encounter - Debbie López OSA - 02/08/2025 12:57 PM EDT Records were requested from [facility] yesterday. * Telephone Encounter - Cande Hinson - 02/07/2025 4:10 PM EDT Called [phone], office currently closed, will need to follow up tomorrow * Telephone Encounter - Gina Yin DO - 02/07/2025 2:19 PM EDT Sorry he is with [facility] now I also need the preop testing that was done at [facility] on 01/31 * Telephone Encounter - Alyse Glasgow LPN - 02/07/2025 1:37 PM EDT Spoke with Zenaida at [facility]. She does not see any documentation of patient scheduled for an upcoming procedure in January. She states that at her last visit she on 11/09/2024 she was to follow up. She states that Dr Oliva is no longer with [facility]. Patient was seen by Haresh Mcclellan PA-C at her last office appointment. * Telephone Encounter - Gina Yin DO - 02/07/2025 1:14 PM EDT Please call Dr Manuel office at [facility] Pt has a small amount of tramadol that she uses for pain Can she use this the week before surgery or does it need to be stopped. documented in this encounter Plan of Treatment [...] filedocumented as of this encounter Care Teams Media Marketing Specialist Relationship Specialty Start Date End Date Gina Yin DO [address] [facility] [place] [address] PCP - General Family Medicine 09/25/24 documented as of this encounter
--- OUTSIDE RECORDS SUMMARY | 2025-02-23 08:42 | External Medical Summary ---
Author Name Unknown Address Unknown Organization K01:LABORATORY [facility] - [address] [place] [address] [place] [address] Laboratory Report Ordering Provider Test Date Status ROMINA DC 02/16/2025 08:19:39 Final Observation Date Value Abnormality Reference (Units ) Status BUN 02/16/2025 08:19:39 26 Above high normal 6-20 (mg/dL) Final Creatinine 02/16/2025 08:19:39 1.0 0.5-1.0 (mg/dL) Final Glomerular filtration rate/1.73 sq M.predicted [Volume Rate/Area] in Serum, Plasma or Blood by Creatinine-based formula (CKD-EPI) 02/16/2025 08:19:39 59 Below low normal >=60 (mL/min) Final eGFR is calculated based on the CKD-EPI 2020 equation. Sodium 02/16/2025 08:19:39 142 135-146 (m mol/L) Final Potassium 02/16/2025 08:19:39 3.4 Below low normal 3.5 -5.1 (mmol/L) Final Cl 02/16/2025 08:19:39 100 98-107 (mm ol/L) Final CO2 02/16/2025 08:19:39 27 22-32 (mmo l/L) Final Anion gap 02/16/2025 08:19:39 15 7-15 (mmol /L) Final Glucose 02/16/2025 08:19:39 107 70-120 (mg /dL) Final Albumin 02/16/2025 08:19:39 4.4 3.8-5.0 (g /dL) Final AST (Aspartate aminotransferase) 02/16/2025 08:19:39 22 10-35 (U/L) Fin al Alk Phos 02/16/2025 08:19:39 79 35-130 (U/ L) Final Bilirubin, Total 02/16/2025 08:19:39 0.4 <=1 .2 (mg/dL) Final Calcium 02/16/2025 08:19:39 9.5 8.4-10.2 ( mg/dL) Final Protein 02/16/2025 08:19:39 6.5 6.0-8.3 (g /dL) Final ALT (Alanine aminotransferase) 02/16/2025 08:19:39 22 10-35 (U/L) Nagi ibrahim Performing Location LAB[facility]ATORY [facility] - [address] [facility] [address]
--- OUTSIDE RECORDS SUMMARY | 2025-02-23 08:42 | External Medical Summary ---
Author Name Unknown Address Unknown Organization K01:LABORATORY [facility] - [facility] [address] [facility] [address] Laboratory Report Ordering Provider Test Date Status ROMINA DC 02/16/2025 07:49:12 Final For PreSurgery, Procedure, O B Admit, or Surveillance testing - Nasal Turbinate source preferred.

For Symptomatic testing - Nasopharyngeal source preferred.
null Observation Date Value Abnormality Reference (Units ) Status SARS Coronavirus 2 02/16/2025 07:49:12 Negative N egative Final 2018 Novel Coronavirus not d etected.

This express test was developed and its performance characteristics determined by [facility]. It has not been cleared or approved by the U.S. Food and Drug Administration (FDA). FDA does not require this test to go thru premarket FDA review. This test is used for clinical purposes. It should not be regarded as investigational or for research. This laboratory is certified under the Clinical Laboratory Improvement Amendments (CLIA) as qualified to perform high complexity clinical laboratory testing.

This test is a nucleic acid amplification test (NAAT), a reverse transcriptase polymerase chain reaction (RT-PCR) test, or a Centers for Disease Control-acceptable equivalent. The test is performed in a high complexity Clinical Laboratory Improvement Amendments-(CLIA) certified laboratory. The test is acceptable for SARS-CoV-2 diagnosis, surveillance, and travel within the [place] and to most countries. Please check with local testing authorities about requirements before travel.

The validation of bronchial specimens, tracheal aspirates, and sputum for this assay was developed and performance characteristics determined by [facility]. The validation of alternate specimen types has not been cleared or approved by the U.S. Food and Drug Administration (FDA). It has been determined that such clearance is not necessary. Performing Location LABORATORY [facility] - [address] [facility] [address]
--- OUTSIDE RECORDS SUMMARY | 2025-02-23 08:42 | External Medical Summary | Summary of Care ---
Author Name Unknown Organization [facility] Address [address] [place] [address] Phone [phone] Care Team Providers Care Barrel Racer Name Role Phone Gina Yin DO Primary Care Provider +1- [phone] Reason for Visit * Reason Onset Date Comments Other 02/07/2025 Records Encounter Details Date Type Department Care Team (Late st Contact Info) Description 02/07/2025 Telephone Family Practice [facility] [address] [place] [address] Gina Yin DO [address] [place] [address] Other (Records ) Allergies Active [...] (Prevnar) 05/28/2020 Pneumococcal Conjugate Vacci ne, 20-valent ([id number]) 11/19/2022 RSV Vac., Recomb, Adjuvant, PF,0.5 Ml [...] encounter Miscellaneous Notes * Telephone Encounter - Gina Yin DO [...] Hinson - 02/07/2025 4:10 PM EDT Called [phone], office currently closed, will need to follow up tomorrow * Telephone Encounter - Gina Yin DO - 02/07/2025 2:19 PM EDT Sorry he is with inghat ochoa now I also need the preop testing that was done at [facility] on 01/31 * Telephone Encounter - Alyse Glasgow LPN - 02/07/2025 1:37 PM EDT Spoke with Zenaida at [facility]. She does not see any documentation of patient scheduled for an upcoming procedure in January. She states that at her last visit she on 11/09/2024 she was to follow up. She states that Dr Oliva is no longer with [facility]. Patient was seen by Haresh Mcclellan PA-C at her last office appointment. * Telephone Encounter - Gina Yin DO - 02/07/2025 1:14 PM EDT Please call Dr Manuel office at [facility] Pt has a small amount of tramadol [...] of 2) 10/22/2020 08/27/2020 Cologuard 06/05/2024 06/05/2021, 080 02/2021, 05/29/2021 Depression Screening 03/01/2025 03/01/2024 COVID-19 [...] filedocumented as of this encounter Care Teams Barrel Racer Relationship Specialty Start Date End Date Gina Yin DO [address] [facility] [place] [address] PCP - General Family Medicine 09/25/24 documented as of this encounter
--- OUTSIDE RECORDS SUMMARY | 2025-02-23 08:42 | External Medical Summary | Summary of Care ---
Author Name Unknown Organization [facility] Address [address] [place] [address] Phone [phone] Care Team Providers Care Scrip Clerk Name Role Phone Gina Yin DO Primary Care Provider +1- [phone] Reason for Visit * Reason Onset Date Comments FYI 02/15/2025 Encounter Details Date Type Department Care Team (Late st Contact Info) Description 02/15/2025 Telephone Family Practice [facility] [place] [address] [place] [address] Gian Yin DO [address] [place] [address] FYI Allergies Active Allergy Reactions [...] (Prevnar) 05/28/2020 Pneumococcal Conjugate Vacci ne, 20-valent ([id number]) 11/19/2022 RSV Vac., Recomb, Adjuvant, PF,0.5 Ml [...] 02/16/2025 7:20 AM EDT Office Visit Family [facility] [address] [place] [address] Gina Yin DO [address] [place] [address] Health Maintenance Due Date Last Done Comments [...] filedocumented as of this encounter Care Teams Scrip Clerk Relationship Specialty Start Date End Date Gina Yin DO [address] [facility] [place] [address] PCP - General Family Medicine 09/25/24 documented as of this encounter
--- OUTSIDE RECORDS SUMMARY | 2025-02-23 08:42 | External Medical Summary | Summary of Care ---
Author Name Unknown Organization [facility] Address [address] [place] [address] Phone [phone] Care Team Providers Care Geometrician Name Role Phone Gina Yin DO Primary Care Provider +1- [phone] Reason for Visit * Reason Onset Date Comments FYI 02/15/2025 Encounter Details Date Type Department Care Team (Late st Contact Info) Description 02/15/2025 Telephone Family Practice [facility] [place] [address] [place] [address] Gina Yin DO [address] [place] [address] FYI Allergies Active Allergy Reactions [...] (Prevnar) 05/28/2020 Pneumococcal Conjugate Vacci ne, 20-valent ([id number]) 11/19/2022 RSV Vac., Recomb, Adjuvant, PF,0.5 Ml [...] 02/16/2025 7:20 AM EDT Office Visit Family [facility] [address] [place] [address] Gina Yin DO [address] [place] [address] Health Maintenance Due Date Last Done Comments [...] filedocumented as of this encounter Care Teams Geometrician Relationship Specialty Start Date End Date Gina Yin DO [address] [facility] [place] [address] PCP - General Family Medicine 09/25/24 documented as of this encounter
--- OUTSIDE RECORDS SUMMARY | 2025-02-23 08:42 | External Medical Summary | Summary of Care ---
Author Name Unknown Organization [facility] Address [address] [place] [address] Phone [phone] Care Team Providers Care Oil Rig Driller Name Role Phone Gina Yin DO Primary Care Provider +1- [phone] Reason for Visit * Reason Onset Date Comments Advice 02/15/2025 Encounter Details Date Type Department Care Team (Late st Contact Info) Description 02/15/2025 [facility] [address] [place] [address] Gina Yin DO [address] [place] [address] Advice Allergies Active Allergy Reactions [...] (Prevnar) 05/28/2020 Pneumococcal Conjugate Vacci ne, 20-valent ([id number]) 11/19/2022 RSV Vac., Recomb, Adjuvant, PF,0.5 Ml [...] EDT I contacted the pt's surgeon at [facility] and informed them. The pt stated she [...] offered, patient denied appts offered Please call [phone] documented in this encounter Plan of Treatment Upcoming Encounters Date Type Department Care Team (Late st Contact Info) Description 02/16/2025 7:20 AM EDT Office Visit Family Practice [facility] [facility] [place] [address] Gina Yin DO [address] [facility] [address] [place] [address] Health Maintenance Due Date [...] glucose documented in this encounter Care Teams Oil Rig Driller Relationship Specialty Start Date End Date Gina Yin DO [address] [facility] [place] [address] PCP - General Family Medicine 09/25/24 documented as of this encounter
--- OUTSIDE RECORDS SUMMARY | 2025-02-23 08:42 | External Medical Summary | Summary of Care ---
Author Name Unknown Organization [facility] Address [address] [place] [facility] [place] [address] Phone [phone] Care Team Providers Care Hr Operations Advisor Name Role Phone Gina Yin DO Primary Care Provider +1- [phone] Reason for Visit * Reason Onset Date Comments Advice 02/15/2025 Encounter Details Date Type Department Care Team (Late st Contact Info) Description 02/15/2025 [facility]phone [facility] [address] [place] [address] Gina Yin DO [address] [place] [address] Advice Allergies Active Allergy Reactions [...] (Prevnar) 05/28/2020 Pneumococcal Conjugate Vacci ne, 20-valent ([id number]) 11/19/2022 RSV Vac., Recomb, Adjuvant, PF,0.5 Ml [...] EDT I contacted the pt's surgeon at [facility] and informed them. The pt stated she [...] offered, patient denied appts offered Please call [phone] documented in this encounter Plan of Treatment Upcoming Encounters Date Type Department Care Team (Late st Contact Info) Description 02/16/2025 7:20 AM EDT Office Visit Family Practice [place] [facility] [address] [place] [place] [address] Gina Yin DO [address] [place] [place] [address] Health Maintenance Due Date [...] glucose documented in this encounter Care Teams Hr Operations Advisor Relationship Specialty Start Date End Date Gina Yin DO [address] [facility] [place] [address] PCP - General Family Medicine 09/25/24 documented as of this encounter
--- OUTSIDE RECORDS SUMMARY | 2025-02-23 08:42 | External Medical Summary | Summary of Care ---
Author Name Unknown Organization [facility] Address [address] [place] [address] Phone [phone] Care Team Providers Care Child Protective Services Specialist Name Role Phone Gina Yin DO Primary Care Provider +1- [phone] Reason for Visit * Reason Onset Date Comments Other 02/07/2025 Records Encounter Details Date Type Department Care Team (Late st Contact Info) Description 02/07/2025 Telephone Family Practice [facility] [address] [place] [address] Gina Yin DO [address] [place] [address] Other (Records ) Allergies Active [...] (Prevnar) 05/28/2020 Pneumococcal Conjugate Vacci ne, 20-valent ([id number]) 11/19/2022 RSV Vac., Recomb, Adjuvant, PF,0.5 Ml [...] Hinson - 02/07/2025 4:10 PM EDT Called [phone], office currently closed, will need to follow up tomorrow * Telephone Encounter - Gina Yin DO - 02/07/2025 2:19 PM EDT Sorry he is with nighat ochoa now I also need the preop testing that was done at [facility] on 01/31 * Telephone Encounter - Alyse Glasgow LPN - 02/07/2025 1:37 PM EDT Spoke with Zenaida at [facility]. She does not see any documentation of patient scheduled for an upcoming procedure in January. She states that at her last visit she on 11/09/2024 she was to follow up. She states that Dr Oliva is no longer with [facility]. Patient was seen by Haresh Mcclellan PA-C at her last office appointment. * Telephone Encounter - Gina Yin DO - 02/07/2025 1:14 PM EDT Please call Dr Manuel office at [facility] Pt has a small amount of tramadol [...] filedocumented as of this encounter Care Teams Child Protective Services Specialist Relationship Specialty Start Date End Date Gina Yin DO [address] [facility] [place] [address] PCP - General Family Medicine 09/25/24 documented as of this encounter
--- OUTSIDE RECORDS SUMMARY | 2025-02-23 08:43 | External Medical Summary | Summary of Care ---
Author Name Unknown Organization [facility] Address [address] [place] [address] Phone [phone] Care Team Providers Care Senior Bi Architect Name Role Phone Gina Yin DO Primary Care Provider +1- [phone] Encounter Details Date Type Department Care Team (Late st Contact Info) Description 02/08/2025 Orders Only Family Practice [place] [facility] [address] [place] [address] Gina Yin DO [address] [place] [address] Allergies Active Allergy Reactions Criticality Noted Date [...] as of this encounter (statuses as of 02/08/2025) Medications Multiple Vitamins-Minerals (HAIR SKIN AND NAILS [...] as of this encounter (statuses as of 02/08/2025) Active Problems Problem Noted Date Diagnosed Date Arthritis of knee 11/29/2024 Overweight (BMI 25.0-29.9) 11/29/2024 Prediabetes 12/06/2023 Overview: Per Prediabetes protocol JAYLEN (generalized anxiety disorder) 07/26/2020 Diastasis recti 06/25/2020 Vitamin D deficiency 05/28/2020 Mixed hyperlipidemia 05/28/2020 Obesity, Class I, BMI 30.0-34.9 (see actual BMI) 05/28/2020 Rosacea 05/05/2005 Palpitations 11/25/2004 BENIGN HYPERTENSION 11/14/2004 Chronic rhinitis 11/14/2004 documented as of this encounter (statuses as of 02/08/2025) Resolved Problems Problem Noted Date Diagnosed Date [...] as of this encounter (statuses as of 02/08/2025) Immunizations Name Administration Dates Next Due COVID-19 mRNA, LNP-s, No Pre serve, 2-Dose Series (Moderna) 12/31/2020,11/28/2020 COVID-19 mRNA, LNP-s, PF, 18 + or 6-11Yrs (Moderna) 01/23/2021,12/23/2020 COVID-19, LNP-s, No Preserve , Ga-sucrose, Ages 12+ (Pfizer) 01/23/2021,12/23/2020 COVID-19, MRNA-LNP, PF, 30 M CG/0.3 mL, 12 YRS AND ABOVE, IM (PFIZER-Comirnaty) 09/25/2024 Pneumococcal Conjugate Vacc, 13 Valent (Prevnar) 05/28/2020 Pneumococcal Conjugate Vacci ne, 20-valent (Didhymm01) 11/19/2022 RSV Vac., Recomb, Adjuvant, PF,0.5 Ml [...] as of this encounter Plan of Treatment Health Maintenance Due Date Last Done Comments DXA Scan 1952 Fecal Occult Blood Test 01/03/1997 Sigmoidoscopy 01/03/1997 Adult Wellness Visit 01/03/2018 Zoster Vaccines (2 of 2) 10/22/2020 08/27/2020 Cologuard 06/05/2024 06/05/2021, 02/2021, 05/29/2021 Depression Screening 03/01/2025 03/01/2024 COVID-19 Vaccine ( season) 2025 09/25/2024, 01/23/2021, 01/23/2021, Additional history exists Mammogram 09/19/2025 09/19/2024, 08/26, 09/09/2022, Additional history exists GFR 11/29/2025 01/26/2025, 02/2025, 09/28/2023, Additional history exists HbA1c 11/29/2025 11/29/2024, 10/25, 04/01/2023, Additional history exists Albumin/Creatinine Ratio 04/05/2026 04/05/2023, [...] Not on filedocumented as of this encounter Procedures Procedure Name Priority Date/Time Associated Diagnosis Comments CHEMISTRY-OUTSIDE Routine 01/26/2025 documented in this encounter Results * CHEMISTRY-OUTSIDE (01/26/2025) Not all results display below - see scan for full detail OUTSIDE LAB (SEE SCANNED REPORT) Comment:SEE SCAN - CBCD, BMP , PTINR, TYPE AND SCREEN CREATININE 0.88 0.6 - 1.2 MG/DL OUTSIDE LAB (SEE SCANNED REPORT) EGFR 69.35 ML/MIN OUTSIDE LA B (SEE SCANNED REPORT) POTASSIUM 4.2 3.5 - 5.1 MMOL/L OUTSIDE LAB (SEE SCANNED REPORT) GLUCOSE 86 70 - 99 MG/DL OUTSIDE LAB (SEE SCANNED REPORT) HOURS FASTING OUTSID E LAB (SEE SCANNED REPORT) TRIGLYCERIDES-OUT SIDE LAB OUTSIDE LAB (SEE SCANNED REPORT) CHOLESTEROL-OUTSI DE LAB OUTSIDE LAB (SEE SCANNED REPORT) HDL-OUTSIDE LAB OUTS CARLIE LAB (SEE SCANNED REPORT) CHOL/HDL RATIO-OUTSIDE LAB OUTSIDE LA B (SEE SCANNED REPORT) LDL (CALCULATED)-OUTS CARLIE LAB OUTSIDE LAB (SEE SCANNED REPORT) LDL (DIRECT MEASURE)-OUTSIDE LAB OUTSIDE LAB (SEE SCANNED REPORT) HEMOGLOBIN, [id number]-[id number] LAB OUTSIDE LAB (SEE SCANNED REPORT) PHOSPHORUS-OUTSID E LAB OUTSIDE LAB (SEE SCANNED REPORT) PTH-OUTSIDE LAB OUTS CARLIE LAB (SEE SCANNED REPORT) MICROALBUMIN RATIO-OUTSIDE LAB OUTSIDE LA B (SEE SCANNED REPORT) PROTEIN, UA-OUTSIDE LAB OUTSIDE LAB (SEE SCANNED REPORT) HGB 13.1 12.0 - 16.0 G/DL OUTSIDE LAB (SEE SCANNED REPORT) 01/26/2025 us History Per Patient LABORATORY Final Result OUTSIDE LAB (SEE SCANNED REPORT) documented in this encounter Care Teams Senior Bi Architect Relationship Specialty Start Date End Date Gina Yin DO [address] [facility] [place] [id number] PCP - General Family Medicine 09/25/24 documented as of this encounter
--- OUTSIDE RECORDS SUMMARY | 2025-02-23 08:43 | External Medical Summary | Summary of Care ---
Author Name Unknown Organization [facility] Address [address] [place] [address] Phone [phone] Care Team Providers Care National Basketball [employer] Scout Name Role Phone Gina Yin DO Primary Care Provider +1- [phone] Reason for Visit * Reason Onset Date Comments Other 02/07/2025 Records Encounter Details Date Type Department Care Team (Late st Contact Info) Description 02/07/2025 Telephone Family Practice [facility] [address] [place] [address] Gina Yin DO [address] [place] [address] Other (Records ) Allergies Active [...] (Prevnar) 05/28/2020 Pneumococcal Conjugate Vacci ne, 20-valent ([id number]) 11/19/2022 RSV Vac., Recomb, Adjuvant, PF,0.5 Ml [...] encounter Miscellaneous Notes * Telephone Encounter - Cassie Arnett OSA - 02/09/2025 9:45 AM EDT Pre op testing scanned in however Dr did not give the ok that Jennifer is cleared for the operation. Can you please get with the Dr to get the ok. * Telephone Encounter - Debbie López OSA - 02/08/2025 12:57 PM EDT Records were requested from [place] yesterday. * Telephone Encounter - Cande Hinson - 02/07/2025 4:10 PM EDT Called [phone], office currently closed, will need to follow up tomorrow * Telephone Encounter - Gina Yin DO - 02/07/2025 2:19 PM EDT Sorry he is with nighat ochoa now I also need the preop testing that was done at [facility] on 01/31 * Telephone Encounter - Alyse Glasgow LPN - 02/07/2025 1:37 PM EDT Spoke with Zenaida at [facility]. She does not see any documentation of patient scheduled for an upcoming procedure in January. She states that at her last visit she on 11/09/2024 she was to follow up. She states that Dr Oliva is no longer with [facility]. Patient was seen by Haresh Mcclellan PA-C at her last office appointment. * Telephone Encounter - Gina Yin DO - 02/07/2025 1:14 PM EDT Please call Dr Manuel office at [facility] Pt has a small amount of tramadol [...] filedocumented as of this encounter Care Teams National Basketball [employer] Scout Relationship Specialty Start Date End Date Gina Yin DO [address] [facility] [place] [id number] PCP - General Family Medicine 09/25/24 documented as of this encounter
--- OUTSIDE RECORDS SUMMARY | 2025-02-23 08:43 | External Medical Summary | Summary of Care ---
Author Name Unknown Organization [facility] Address [address] [place] [address] Phone [phone] Care Team Providers Care Gut Dropper Name Role Phone Gina Yin DO Primary Care Provider +1- [phone] Reason for Visit * Reason Onset Date Comments Other 02/07/2025 Records Encounter Details Date Type Department Care Team (Late st Contact Info) Description 02/07/2025 Telephone Family Practice [facility] [address] [place] [address] Gina Yin DO [address] [place] [address] Other (Records ) Allergies Active [...] (Prevnar) 05/28/2020 Pneumococcal Conjugate Vacci ne, 20-valent ([id number]) 11/19/2022 RSV Vac., Recomb, Adjuvant, PF,0.5 Ml [...] encounter Miscellaneous Notes * Telephone Encounter - Debbie López OSA - 02/08/2025 12:57 PM EDT Records were requested from [place] yesterday. * Telephone Encounter - Cande Hinson - 02/07/2025 4:10 PM EDT Called [phone], office currently closed, will need to follow up tomorrow * Telephone Encounter - Gina Yin DO - 02/07/2025 2:19 PM EDT Sorry he is with nighat ochoa now I also need the preop testing that was done at [facility] on 01/31 * Telephone Encounter - Alyse Glasgow LPN - 02/07/2025 1:37 PM EDT Spoke with Zenaida at [facility]. She does not see any documentation of patient scheduled for an upcoming procedure in January. She states that at her last visit she on 11/09/2024 she was to follow up. She states that Dr Oliva is no longer with [facility]. Patient was seen by Haresh Mcclellan PA-C at her last office appointment. * Telephone Encounter - Gina Yin DO - 02/07/2025 1:14 PM EDT Please call Dr Manuel office at [facility] Pt has a small amount of tramadol [...] filedocumented as of this encounter Care Teams Gut Dropper Relationship Specialty Start Date End Date Gina Yin DO [address] [facility] [place] [address] PCP - General Family Medicine 09/25/24 documented as of this encounter
--- OUTSIDE RECORDS SUMMARY | 2025-02-23 08:43 | External Medical Summary | Summary of Care ---
Author Name Unknown Organization [facility] Address [address] [place] [address] Phone [phone] Care Team Providers Care Painter Barrel Name Role Phone Gina Yin DO Primary Care Provider +1- [phone] Reason for Visit * Reason Onset Date Comments Other 02/07/2025 Records Encounter Details Date Type Department Care Team (Late st Contact Info) Description 02/07/2025 Telephone Family Practice [facility] [address] [place] [address] Gina Yin DO [address] [place] [address] Other (Records ) Allergies Active [...] (Prevnar) 05/28/2020 Pneumococcal Conjugate Vacci ne, 20-valent ([id number]) 11/19/2022 RSV Vac., Recomb, Adjuvant, PF,0.5 Ml [...] encounter Miscellaneous Notes * Telephone Encounter - Cande Hinson - 02/09/2025 11:09 AM EDT Spoke with [...] Hinson - 02/07/2025 4:10 PM EDT Called [phone], office currently closed, will need to follow up tomorrow * Telephone Encounter - Gina Yin DO - 02/07/2025 2:19 PM EDT Sorry he is with nighat ochoa now I also need the preop testing that was done at [facility] on 01/31 * Telephone Encounter - Alyse Glasgow LPN - 02/07/2025 1:37 PM EDT Spoke with Zenaida at [facility]. She does not see any documentation of patient scheduled for an upcoming procedure in January. She states that at her last visit she on 11/09/2024 she was to follow up. She states that Dr Oliva is no longer with [facility]. Patient was seen by Haresh Mcclellan PA-C at her last office appointment. * Telephone Encounter - Gina Yin DO - 02/07/2025 1:14 PM EDT Please call Dr Manuel office at [facility] Pt has a small amount of tramadol [...] filedocumented as of this encounter Care Teams Painter Barrel Relationship Specialty Start Date End Date Gina Yin DO [address] [facility] [place] [address] PCP - General Family Medicine 09/25/24 documented as of this encounter
--- OUTSIDE RECORDS SUMMARY | 2025-02-23 08:43 | External Medical Summary | Summary of Care ---
Author Name Unknown Organization [facility] Address [address] [place] [address] Phone [phone] Care Team Providers Care Live Out Nanny Name Role Phone Gina Yin Primary Care Provider +1- [phone] Encounter Details Date Type Department Care Team (Late st Contact Info) Description 01/26/2025 Result Scan Unspecified Department <No scans attached> Allergies Active Allergy Reactions Criticality Noted Date [...] AT BEDTIME 180 Tablet 01/17/20 25 Active documented as of this encounter [...] CG/0.3 mL, 12 YRS AND ABOVE, IM (SENSIMED-Comirnat) 09/25/2024 Pneumococcal Conjugate Vacc, 13 Valent (Prevnar) 05/28/2020 Pneumococcal Conjugate Vacci ne, 20-valent ([id number]) 11/19/2022 RSV Vac., Recomb, Adjuvant, PF,0.5 Ml [...] No 03/01/2024 Does the household have a [facility] source of income? (Household - for ages [...] Additional history exists Albumin/Creatinine Ratio 04/05/2026 04/05/2023, 0 02/2022 Lipid Panel 11/29/2029 11/29/2024, 0 02/2023, 04/01/2023, Additional history exists DTap/Tdap Vaccines [...] Procedure Name Priority Date/Time Associated Diagnosis Comments EKG SCANNED RESULT 01/26/2025 EKG SCANNED RESULT 01/26/2025 documented in this encounter Results * EKG SCANNED RESULT (01/26/2025) 01/26/2025 us No Physician Data Unknown EKG Final Result * EKG SCANNED RESULT (01/26/2025) 01/26/2025 us No Physician Data Unknown EKG Final Result documented in this encounter Care Teams Live Out Nanny Relationship Specialty Start Date End Date Gina Yin DO [address] [facility] [place] [address] PCP - General Family Medicine 09/25/24 documented as of this encounter
--- OUTSIDE RECORDS SUMMARY | 2025-02-23 08:43 | External Medical Summary | Summary of Care ---
Author Name Unknown Organization [facility] Address [address] [place] [address] Phone [phone] Care Team Providers Care Icu Staff Nurse Name Role Phone Gina Yin DO Primary Care Provider +1- [phone] Reason for Visit * Reason Onset Date Comments Other 02/07/2025 Records Encounter Details Date Type Department Care Team (Late st Contact Info) Description 02/07/2025 Telephone Family Practice [facility] [address] [place] [address] Gina Yin DO [address] [place] [address] Other (Records ) Allergies Active [...] (Prevnar) 05/28/2020 Pneumococcal Conjugate Vacci ne, 20-valent ([id number]) 11/19/2022 RSV Vac., Recomb, Adjuvant, PF,0.5 Ml [...] Hinson - 02/07/2025 4:10 PM EDT Called [phone], office currently closed, will need to follow up tomorrow * Telephone Encounter - Gina Yin DO - 02/07/2025 2:19 PM EDT Sorry he is with nighat ochoa now I also need the preop testing that was done at [facility] on 01/31 * Telephone Encounter - Alyse Glasgow LPN - 02/07/2025 1:37 PM EDT Spoke with Zenaida at [facility]. She does not see any documentation of patient scheduled for an upcoming procedure in January. She states that at her last visit she on 11/09/2024 she was to follow up. She states that Dr Oliva is no longer with [facility]. Patient was seen by Haresh Mcclellan PA-C at her last office appointment. * Telephone Encounter - Gina Yin DO - 02/07/2025 1:14 PM EDT Please call Dr Manuel office at [facility] Pt has a small amount of tramadol [...] filedocumented as of this encounter Care Teams Icu Staff Nurse Relationship Specialty Start Date End Date Gina Yin DO [address] [facility] [place] [address] PCP - General Family Medicine 09/25/24 documented as of this encounter
--- OUTSIDE RECORDS SUMMARY | 2025-02-23 08:44 | External Medical Summary | Summary of Care ---
Author Name Unknown Organization [facility] Address [address] [place] [address] Phone [phone] Care Team Providers Care Throw Out Clerk Name Role Phone Gina Yin DO Primary Care Provider +1- [phone] Encounter Details Date Type Department Care Team (Late st Contact Info) Description 02/07/2025 Telephone Family Practice [place] [facility] [address] [place] [address] Gina Yin DO [address] [place] [address] Allergies Active Allergy Reactions Criticality Noted [...] as of this encounter (statuses as of 02/07/2025) Medications Multiple Vitamins-Minerals (HAIR SKIN AND NAILS [...] as of this encounter (statuses as of 02/07/2025) Active Problems Problem Noted Date Diagnosed Date Arthritis of knee 11/29/2024 Overweight (BMI 25.0-29.9) 11/29/2024 Prediabetes 12/06/2023 Overview: Per Prediabetes protocol JAYLEN (generalized anxiety disorder) 07/26/2020 Diastasis recti 06/25/2020 Vitamin D deficiency 05/28/2020 Mixed hyperlipidemia 05/28/2020 Obesity, Class I, BMI 30.0-34.9 (see actual BMI) 05/28/2020 Rosacea 05/05/2005 Palpitations 11/25/2004 BENIGN HYPERTENSION 11/14/2004 Chronic rhinitis 11/14/2004 documented as of this encounter (statuses as of 02/07/2025) Resolved Problems Problem Noted Date Diagnosed Date [...] as of this encounter (statuses as of 02/07/2025) Immunizations Name Administration Dates Next Due COVID-19 mRNA, LNP-s, No Pre serve, 2-Dose Series (Moderna) 12/31/2020,11/28/2020 COVID-19 mRNA, LNP-s, PF, 18 + or 6-11Yrs (Moderna) 01/23/2021,12/23/2020 COVID-19, LNP-s, No Preserve , Ga-sucrose, Ages 12+ (Pfizer) 01/23/2021,12/23/2020 COVID-19, MRNA-LNP, PF, 30 M CG/0.3 mL, 12 YRS AND ABOVE, IM (PFIZER-Comirnaty) 09/25/2024 Pneumococcal Conjugate Vacc, 13 Valent (Prevnar) 05/28/2020 Pneumococcal Conjugate Vacci ne, 20-valent ([id number]) 11/19/2022 RSV Vac., Recomb, Adjuvant, PF,0.5 Ml [...] Notes * Telephone Encounter - Cande Hinson LPN - 02/07/2025 4:10 PM EDT Called [phone], office currently closed, will need to follow up tomorrow * Telephone Encounter - Gina Yin DO - 02/07/2025 2:19 PM EDT Sorry he is with nighat gabriela now I also need the preop testing that was done at [facility] on 01/31 * Telephone Encounter - Alyse Glasgow LPN - 02/07/2025 1:37 PM EDT Spoke with Zenaida at [facility] She does not see any documentation of patient scheduled for an upcoming procedure in January. She states that at her last visit she on 11/09/2024 she was to follow up. She states that Dr Oliva is no longer with [facility] Patient was seen by Haresh Mcclellan PA-C at her last office appointment. * Telephone Encounter - Gina Yin DO - 02/07/2025 1:14 PM EDT Please call Dr Manuel office at [facility] Pt has a small amount of tramadol [...] 08/26, 09/09/2022, Additional history exists GFR 11/29/2025 11/29/2024, 120 02/2023, 07/01/2023, Additional history exists HbA1c 11/29/2025 11/29/2024, 10/25, 04/01/2023, Additional history exists Albumin/Creatinine Ratio 04/05/2026 04/05/2023, 12/0 02/2022 Lipid Panel 11/29/2029 11/29/2024, 120 02/2023, [...] filedocumented as of this encounter Care Teams Throw Out Clerk Relationship Specialty Start Date End Date [facility] [address] [facility] [address] PCP - General Family Medicine 09/25/24 documented as of this encounter
--- OUTSIDE RECORDS SUMMARY | 2025-02-23 08:44 | External Medical Summary | Summary of Care ---
Author Name Unknown Organization [facility] Address [address] [place] [address] Phone [phone] Care Team Providers Care Ordnance Truck Installation Mechanic Name Role Phone Gina Yin DO Primary Care Provider +1- [phone] Encounter Details Date Type Department Care Team (Late st Contact Info) Description 02/07/2025 Telephone Family Practice [place] [facility] [address] [place] [address] Gina Yin DO [address] [place] [address] Allergies Active Allergy Reactions Criticality [...] (Prevnar) 05/28/2020 Pneumococcal Conjugate Vacci ne, 20-valent ([id number]) 11/19/2022 RSV Vac., Recomb, Adjuvant, PF,0.5 Ml [...] LPN - 02/07/2025 4:10 PM EDT Called [phone], office currently closed, will need to follow up tomorrow * Telephone Encounter - Gina Yin DO - 02/07/2025 2:19 PM EDT Sorry he is with nighat gabriela now I also need the preop testing that was done at [facility] on 01/31 * Telephone Encounter - Alyse Glasgow LPN - 02/07/2025 1:37 PM EDT Spoke with Zenaida at [facility] She does not see any documentation of patient scheduled for an upcoming procedure in January. She states that at her last visit she on 11/09/2024 she was to follow up. She states that Dr Oliva is no longer with [facility] Patient was seen by Haresh Mcclellan PA-C at her last office appointment. * Telephone Encounter - Gina Yin DO - 02/07/2025 1:14 PM EDT Please call Dr Manuel office at [facility] Pt has a small amount of tramadol [...] filedocumented as of this encounter Care Teams Ordnance Truck Installation Mechanic Relationship Specialty Start Date End Date Gina [facility]in DO [address] [facility] [address] PCP - General Family Medicine 09/25/24 documented as of this encounter
--- OUTSIDE RECORDS SUMMARY | 2025-02-23 08:44 | External Medical Summary | Summary of Care ---
Author Name Unknown Organization [facility] Address [address] [place] [address] Phone [phone] Care Team Providers Care Director Of Safety And Security Name Role Phone Gina Yin DO Primary Care Provider +1- [phone] Encounter Details Date Type Department Care Team (Late st Contact Info) Description 02/07/2025 Telephone Family Practice [place] [facility] [address] [facility] [place] [address] Gina Yin DO [address] [place] [address] Allergies Active Allergy Reactions Criticality [...] (Prevnar) 05/28/2020 Pneumococcal Conjugate Vacci ne, 20-valent ([id number]) 11/19/2022 RSV Vac., Recomb, Adjuvant, PF,0.5 Ml [...] LPN - 02/07/2025 4:10 PM EDT Called [phone], office currently closed, will need to follow up tomorrow * Telephone Encounter - Gina Yin DO - 02/07/2025 2:19 PM EDT Sorry he is with nighat gabriela now I also need the preop testing that was done at [facility] on 01/31 * Telephone Encounter - Alyse Glasgow LPN - 02/07/2025 1:37 PM EDT Spoke with Zenaida at [facility]. She does not see any documentation of patient scheduled for an upcoming procedure in January. She states that at her last visit she on 11/09/2024 she was to follow up. She states that Dr Oliva is no longer with [facility]. Patient was seen by Haresh Mcclellan PA-C at her last office appointment. * Telephone Encounter - Gina Yin DO - 02/07/2025 1:14 PM EDT Please call Dr Manuel office at [facility] Pt has a small amount [...] filedocumented as of this encounter Care Teams Director Of Safety And Security Relationship Specialty Start Date End Date [facility]ina [facility] DO [address] [facility] [address] PCP - General Family Medicine 09/25/24 documented as of this encounter
--- OUTSIDE RECORDS SUMMARY | 2025-02-23 08:44 | External Medical Summary | Summary of Care ---
Author Name Unknown Organization [facility] Address [address] [place] [address] Phone [phone] Care Team Providers Care Nuclear Equipment Test Engineer Name Role Phone Gina Yin DO Primary Care Provider +1- [phone] Encounter Details Date Type Department Care Team (Late st Contact Info) Description 02/08/2025 Orders Only Family Practice [place] [facility] [address] [place] [address] Gina Yin DO [address] [place] [address] Allergies Active Allergy Reactions Criticality Noted [...] (Prevnar) 05/28/2020 Pneumococcal Conjugate Vacci ne, 20-valent ([id number]) 11/19/2022 RSV Vac., Recomb, Adjuvant, PF,0.5 Ml [...] Procedure Name Priority Date/Time Associated Diagnosis Comments XR CHEST 2 VIEWS Routine 01/26/2025 documented in this encounter Results * XR CHEST 2 VIEWS (01/26/2025) Anatomical Region Laterality Modality Chest Other 01/26/2025 us Harvey Oliva DO RADIOLOGY (RAD GENERAL) F inal Result documented in this encounter Care Teams Nuclear Equipment Test Engineer Relationship Specialty Start Date End Date Gina Yin DO [address] [facility] [place] [address] PCP - General Family Medicine 09/25/24 documented as of this encounter
--- OUTSIDE RECORDS SUMMARY | 2025-02-23 08:44 | External Medical Summary | Summary of Care ---
Author Name Unknown Organization [facility] Address [address] [place] [address] Phone [phone] Care Team Providers Care Assistant Broker Name Role Phone Gina Yin DO Primary Care Provider +1- [phone] Encounter Details Date Type Department Care Team (Late st Contact Info) Description 02/07/2025 Telephone Family Practice [place] [facility] [address] [place] [address] Gina Yin DO [address] [place] [address] Allergies Active Allergy Reactions Criticality [...] (Prevnar) 05/28/2020 Pneumococcal Conjugate Vacci ne, 20-valent ([id number]) 11/19/2022 RSV Vac., Recomb, Adjuvant, PF,0.5 Ml [...] LPN - 02/07/2025 4:10 PM EDT Called [phone], office currently closed, will need to follow up tomorrow * Telephone Encounter - Gina Yin DO - 02/07/2025 2:19 PM EDT Sorry he is with nighat gabriela now I also need the preop testing that was done at [facility] on 01/31 * Telephone Encounter - Alyse Glasgow LPN - 02/07/2025 1:37 PM EDT Spoke with Zenaida at [facility]. She does not see any documentation of patient scheduled for an upcoming procedure in January. She states that at her last visit she on 11/09/2024 she was to follow up. She states that Dr Oliva is no longer with [facility]. Patient was seen by Haresh Mcclellan PA-C at her last office appointment. * Telephone Encounter - Gina Yin DO - 02/07/2025 1:14 PM EDT Please call Dr Manuel office at [facility] Pt has a small amount [...] filedocumented as of this encounter Care Teams Assistant Broker Relationship Specialty Start Date End Date Gina [facility]in [facility] [address] [facility] [address] PCP - General Family Medicine 09/25/24 documented as of this encounter
--- OUTSIDE RECORDS SUMMARY | 2025-02-23 08:44 | External Medical Summary | Summary of Care ---
Author Name Unknown Organization [facility] Address [address] [place] [address] Phone [phone] Care Team Providers Care Licensed Pesticide Applicator Name Role Phone Gina Yin DO Primary Care Provider +1- [phone] Encounter Details Date Type Department Care Team (Late st Contact Info) Description 02/07/2025 Telephone Family Practice [place] [facility] [address] [place] [address] Gina Yin DO [address] [place] [address] Allergies Active Allergy Reactions Criticality [...] (Prevnar) 05/28/2020 Pneumococcal Conjugate Vacci ne, 20-valent ([id number]) 11/19/2022 RSV Vac., Recomb, Adjuvant, PF,0.5 Ml [...] LPN - 02/07/2025 4:10 PM EDT Called [phone], office currently closed, will need to follow up tomorrow * Telephone Encounter - Gina Yin DO - 02/07/2025 2:19 PM EDT Sorry he is with nighat gabriela now I also need the preop testing that was done at [facility] on 01/31 * Telephone Encounter - Alyse Glasgow LPN - 02/07/2025 1:37 PM EDT Spoke with Zenaida at [facility]. She does not see any documentation of patient scheduled for an upcoming procedure in January. She states that at her last visit she on 11/09/2024 she was to follow up. She states that Dr Oliva is no longer with [facility]. Patient was seen by Haresh Mcclellan PA-C at her last office appointment. * Telephone Encounter - Gina Yin DO - 02/07/2025 1:14 PM EDT Please call [address] Manuel office at [facility] Pt has a small amount of tramadol [...] filedocumented as of this encounter Care Teams Licensed Pesticide Applicator Relationship Specialty Start Date End Date [facility] [address] [facility] [address] PCP - General Family Medicine 09/25/24 documented as of this encounter
--- OUTSIDE RECORDS SUMMARY | 2025-02-23 08:44 | External Medical Summary | Summary of Care ---
Author Name Unknown Organization [facility] Address [address] [place] [address] Phone [phone] Care Team Providers Care Locomotive Engineer Name Role Phone Gina Yin DO Primary Care Provider +1- [phone] Reason for Visit * Reason Onset Date Comments Medication Refill 02/06/2025 Encounter Details Date Type Department Care Team (Late st Contact Info) Description 02/06/2025 Refill [facility] [address] [place] [address] Gina Yin DO [address] [place] [address] Class 1 obesity without serious comorbidity with body mass index (BMI) of 30.0 to 30.9 in adult, unspecified obesity type* Allergies Active Allergy Reactions Criticality Noted Date [...] Other reaction(s): ITCHINESS, N&V Shellfish-Derived Products High 2 Other reaction(s): VIOLENTLY ILL Sulfonylureas 11/21/2004 sulfa drugs, bactrim nausea Tetracyclines & Related 11/21/2004 Venlafaxine 12/03/2004 documented as of this encounter (statuses as of 02/06/2025) Medications Multiple Vitamins-Minerals (HAIR SKIN AND NAILS [...] in the morning. 30 Capsule 02/07/20 25 Active Phentermine HCl 37.5 MG Oral CapsuleIndications :Class 1 obesity without serious comorbidity with body mass index (BMI) of 30.0 to 30.9 in adult, unspecified obesity type Take 1 Capsule by mouth in the morning. 30 Capsule 01/11/20 25 025 Discontin ued(Refil l) documented as of this encounter (statuses as of 02/06/2025) Active Problems Problem Noted Date Diagnosed Date Arthritis of knee 11/29/2024 Overweight (BMI 25.0-29.9) 11/29/2024 Prediabetes 12/06/2023 Overview: Per Prediabetes protocol JAYLEN (generalized anxiety disorder) 07/26/2020 Diastasis recti 06/25/2020 Vitamin D deficiency 05/28/2020 Mixed hyperlipidemia 05/28/2020 Obesity, Class I, BMI 30.0-34.9 (see actual BMI) 05/28/2020 Rosacea 05/05/2005 Palpitations 11/25/2004 BENIGN HYPERTENSION 11/14/2004 Chronic rhinitis 11/14/2004 documented as of this encounter (statuses as of 02/06/2025) Resolved Problems Problem Noted Date Diagnosed Date [...] as of this encounter (statuses as of 02/06/2025) Immunizations Name Administration Dates Next Due COVID-19 mRNA, LNP-s, No Pre serve, 2-Dose Series (Moderna) 12/31/2020,11/28/2020 COVID-19 mRNA, LNP-s, PF, 18 + or 6-11Yrs (Moderna) 01/23/2021,12/23/2020 COVID-19, LNP-s, No Preserve , Ga-sucrose, Ages 12+ (Pfizer) 01/23/2021,12/23/2020 COVID-19, MRNA-LNP, PF, 30 M CG/0.3 mL, 12 YRS AND ABOVE, IM (PFIZER-Comirnaty) 09/25/2024 Pneumococcal Conjugate Vacc, 13 Valent (Prevnar) 05/28/2020 Pneumococcal Conjugate Vacci ne, 20-valent ([id number]) 11/19/2022 RSV Vac., Recomb, Adjuvant, PF,0.5 Ml [...] encounter Miscellaneous Notes * Telephone Encounter - Magaly Quintana PA-C - 02/06/2025 1:01 PM EDT Signed Prescriptions: Disp Refills Phentermine HCl 37.5 MG Oral Capsule 30 Cap*0 Sig: Take 1 Capsule by mouth in the morning.Authorizing Provider: MAGALY QUINTANA * Telephone Encounter - Katharine Vasquez LPN - 02/06/2025 1:00 PM EDT No prescriptions requested or ordered in this encounter Last Visit: 01/10/2025 (in office), 11/17/2021 (telemedicine) Next Visit: 02/07/2025 Last date the medication was ordered: 01/10/25 Patient Active Problem List Diagnosis BENIGN HYPERTENSION Chronic rhinitis Palpitations Vitamin D deficiency Mixed hyperlipidemia Obesity, Class I, BMI 30.0-34.9 (see actual BMI) Rosacea Diastasis recti JAYLEN (generalized anxiety disorder) Prediabetes Arthritis of knee Overweight (BMI 25.0-29.9) Labs: Lab Results Component Value Date/Time CREATININE - [facility] 1.0 11/29/2024 10:42 AM CREATININE - [facility] 1.0 06/13/2020 07:37 AM CREATININE, RANDOM URINE - [facility] 63 04/05/2023 03:20 PM Lab Results Component Value Date/Time POTASSIUM - [facility] 4.0 11/29/2024 10:42 AM POTASSIUM - [facility] 4.6 06/13/2020 07:37 AM Lab Results Component Value Date/Time TSH - [facility] 2.44 04/01/2023 09:41 AM TSH - [facility] 2.23 06/13/2020 07:37 AM Lab Results Component Value Date/Time LDL CHOLESTEROL (CALCULATED) - [facility] 135 (H) 11/29/2024 10:42 AM LDL CHOLESTEROL (CALCULATED) - [facility] 97 09/28/2023 09:47 AM LDL CHOLESTEROL (CALCULATED) - [facility] 127 06/13/2020 07:37 AM LDL CHOLESTEROL (DIRECT MEASURE) - [facility] NOT APPLICABLE 06/13/2020 07:37 AM Lab Results Component Value Date/Time ALT - [facility] 27 11/29/2024 10:42 AM ALT - [facility] 24 06/13/2020 07:37 AM Hemoglobin AIC Results: Lab Results Component Value Date/Time HEMOGLOBIN A1C - [facility] 5.9 (H) 11/29/2024 10:42 AM HEMOGLOBIN A1C - [facility] 5.9 (H) 11/06/2023 10:28 AM HEMOGLOBIN A1C - [facility] 5.6 04/01/2023 09:41 AM documented in this encounter Plan of Treatment Upcoming Encounters Date Type Department Care Team (Late st Contact Info) Description 02/07/2025 11:00 AM EDT Office Visit Family Practice [address] [place] [address] Gina Yin DO [address] [place] [address] Health Maintenance Due Date Last Done [...] as of this encounter Visit Diagnoses Diagnosis Class 1 obesity without serious comorbidity with body mass index (BMI) of 30.0 to 30.9 in adult, unspecified obesity type- Primary documented in this encounter Care Teams Locomotive Engineer Relationship Specialty Start Date End Date Gina Yin DO [address] [facility] [place] [address] PCP - General Family Medicine 09/25/24 documented as of this encounter
--- OUTSIDE RECORDS SUMMARY | 2025-02-23 08:44 | External Medical Summary | Summary of Care ---
Author Name Unknown Organization [facility] Address [address] [place] [address] Phone [phone] Care Team Providers Care Dispatch Lead Name Role Phone Gina Yin DO Primary Care Provider +1- [phone] Reason for Visit * Reason Comments Pre-Op Testing Pre op clearance for left total knee placement. No other concerns to discuss. Encounter Details Date Type Department Care Team (Late st Contact Info) Description 02/07/2025 11:00 AM EDT Office Visit Family [facility] [place] [address] [facility] [place] [address] [facility] DO [address] [facility] [address] Preop examination*; Arthritis of knee; Prediabetes; [...] (Prevnar) 05/28/2020 Pneumococcal Conjugate Vacci ne, 20-valent ([id number]) 11/19/2022 RSV Vac., Recomb, Adjuvant, PF,0.5 Ml [...] Fluid retention Hepatic cyst resolved, removed 2015, [facility] Hypercholesterolemia Lung nodule Pneumonia, organism unspecified(486) Past [...] Stability Do you currently live in a senior living or have no steady place to sleep [...] results are sent to necessary parties. Gina Yin DO All, some, or none [...] this encounter Nursing Notes * Odessa Bailon CMA - 02/07/2025 11:11 AM EDT Chief Complaint [...] 09/09/2022, Additional history exists GFR 11/29/2025 11/29/2024, 02/2023, 07/01/2023, Additional history exists HbA1c 11/29/2025 11/29/2024, 10/25, 04/01/2023, Additional history exists Albumin/Creatinine Ratio 04/05/2026 04/05/2023, 1202/2022 Lipid Panel 11/29/2029 11/29/2024, 1202/2023, 04/01/2023, Additional history exists DTap/Tdap Vaccines (2 [...] type documented in this encounter Care Teams Dispatch Lead Relationship Specialty Start Date End Date Gina Yin DO [address] [facility] [place] [address] PCP - General Family Medicine 09/25/24 documented as of this encounter
[2025-02-23] MEDS: FAMOTIDINE 20 MG TAB PO SCH (08:57)
[2025-02-23] MEDS: ACETAMINOPHEN 500 MG TAB PO SCH ×2 (08:57→15:20)
[2025-02-23] MEDS: dexAMETHasone**PF** 10 MG/ML VIAL IV SCH (08:57)
[2025-02-23] MEDS: GABAPENTIN 300 MG CAP PO SCH (08:57)
[2025-02-23] MEDS: LR 500ML BOLUS, THEN 15ML/HR IV SCH (09:01)
--- NOTE | 2025-02-23 09:09 | History & Physical Bridge Note ---
Date of Service February 23, 2025 History & Physical Bridge Note I have examined the patient, reviewed the History & Physical and in the interval since the performance of the History & Physical I have noted the following changes of clinical significance: no changes noted
[2025-02-23] MEDS ORDERED: ONDANSETRON INJ 2 MG/ML 2 ML VIAL IV PRN ×2 (09:24→15:08)
[2025-02-23] MEDS ORDERED: ATROPINE SULFATE 0.1 MG/ML 10ML SYR IV PRN (09:24)
[2025-02-23] MEDS ORDERED: ePHEDrine sulfate 50 MG/ML AMP IV PRN (09:24)
[2025-02-23] MEDS ORDERED: PROMETHAZINE HCL 6.25 MG in SODIUM CHLORIDE 0.9% 50 ML IV PRN (09:24)
[2025-02-23] MEDS ORDERED: Nursing to Pharmacy Communication SCH (09:30)
[2025-02-23] MEDS: TRANEXAMIC ACID 1,000 MG **IV Pre-op IV SCH (09:52)
[2025-02-23] MEDS: LR 60ML/HR IV SCH (10:08)
[2025-02-23] MEDS: ceFAZolin 2000MG 2,000 MG/15 ML SYR IV SCH (10:10)
[2025-02-23] MEDS ORDERED: KETAMINE HCL 10MG/ML SYR ONE (10:17)
[2025-02-23] MEDS ORDERED: KETOROLAC 30 MG/ML VIAL ONE (10:26)
[2025-02-23] MEDS ORDERED: PHENYLEPHRINE HCL 10 MG/ML VIAL ONE (10:34)
[2025-02-23] MEDS: TRANEXAMIC ACID 1,000 MG **IV Intra-op IV SCH (11:02)
--- NOTE | 2025-02-23 11:08 | Operative Report ---
PG Post Operative Report Pre & Post Diagnosis Operation Date: 02/23/25 10:00 Pre-Op Diagnosis: Osteoarthritis of left knee Post-Op Diagnosis: Osteoarthritis of left knee I identified the patient and participated in the time-out.: Yes Procedure Operation Date: 02/23/25 10:00 Actual Procedures p Left Total Knee Arthroplasty(Left) - Harvey Oliva DO Surgeon Harvey Oliva DO Residential Specialist Rodger Muniz PA-C Estimated Blood Loss 50 Findings Consistent with Post-Op Diagnosis Specimens Left femoral and tibial bone Description of Procedure Implants used: I used a [employer] Person[employer] total knee arthroplasty system with a size 6 standard femur, D tibia, 31 oval patella, and a size 11 medial congruent polyethylene bearing. All components were cemented in place with Biomet cement. Jennifer arrived [facility] for the above procedure. She was seen in the preoperative holding area and the operative extremity was identified and signed. She was given a preoperative antibiotic, TXA, a spinal anesthetic and an adductor nerve block. She was taken back to the operating room and laid on the table in supine position. She was given basic sedation. The operative knee was then prepped and draped in sterile fashion. A timeout was done, and the patient and the operative extremity was properly identified. A midline incision was made directly over the patella. Dissection was taken down to the extensor mechanism. A medial parapatellar arthrotomy was used. The medial retinaculum was released and the fat pad was mostly excised. The knee was flexed and the ACL, PCL, and meniscus were removed. A drill was sent down the center of the femoral canal followed by an intramedullary melissa. Off that melissa a distal femoral cutting block was placed. 9 mm was resected off the distal femur at 5 of valgus. A posterior referencing AP sizing guide was then placed on the distal femur. The femur measured to be a size 6. 2 drill holes were placed in 3 of external rotation. A 4-in-1 cutting block was then impacted into place. Anterior, posterior, and chamfer cuts were then made. The proximal tibia was then exposed. An external tibial alignment guide was placed. A tibial cut guide was then anchored in place and the proximal tibia was then resected. The posterior aspect of the knee was then opened up and any additional meniscus fragments and osteophytes were removed. The tibia measured to be a size D. The tibial plate was then placed in the appropriate rotation and the tibia was drilled and punched. Trial components were then placed. I used a size 11 medial congruent polyethylene insert. The knee was brought through a full range of motion and felt to be stable. The peg holes for the femoral component were then drilled. The patella was then everted and 9 mm was resected off the posterior aspect of the patella. The patella measured to be a size 31 oval. 3 peg holes were then drilled. A trial patella was placed. The knee was once again brought through a full range of motion and felt to be stable. Trial components were then removed. The surrounding soft tissues were injected with 100 cc of an orthopedic pain control cocktail. All components were then cemented into place with Biomet cement. The final polyethylene insert was then snapped into place. Once cement was dry the tourniquet was deflated. Hemostasis was obtained. A dilute betadyne lavage was then done for 3 minutes. The joint was then irrigated with normal saline solution. The medial parapatellar arthrotomy was then closed with #1 Vicryl suture. The skin was closed with 2-0 Vicryl, 3-0V lock suture, and suman. A soft compressive dressing was placed. She was then transferred to a hospital bed and taken to the postanesthesia care unit in stable condition. She tolerated the procedure well. Rodger Muniz PA-C, was present for the entire procedure. He was critical for patient positioning, prepping, draping, retraction exposure, wound closure and application of sterile dressing. I attest to the content of the Intraoperative Record and any orders documented therein. Any exceptions are noted below.
[2025-02-23] MEDS: ROPIV 0.5% 246mg, Ketorolac 30mg, EPINEPHrine 0.5mg in NSS INFIL SCH (11:09)
[2025-02-23] MEDS: ORTHO JOINT ANESTHETIC ONE (11:23)
--- NOTE | 2025-02-23 11:55 | XRay Report ---
XR knee LT 1 or 2V routine HISTORY: 75 years-old Female Surgical Post Op COMPARISON: Radiographs 12/12/2024 TECHNIQUE: 2 views of the left knee FINDINGS: Total joint arthroplasty with patellar resurfacing and anterior midline skin suman. Expected postop erative soft tissue swelling with deep tissue air. IMPRESSION: Total joint arthroplasty with expected postoperative changes. ACT 112: Negative or not required by law. The above report was generated using voice recognition software. It may contain grammatical, syntax o r spelling errors. Electronically signed by: Bob Merrill M.D. 02/23/2025 11:54 AM
[2025-02-23] MEDS: fentaNYL citrate PF 100 MCG/2 ML VIAL IV PRN (12:24)
[2025-02-23] MEDS: HYDROmorphone INJ 2 MG/ML SYR/VIAL IV PRN (14:03)
[2025-02-23] MEDS ORDERED: LORazepam 0.5 MG TAB PO PRN (15:08)
[2025-02-23] MEDS ORDERED: NALOXONE HCL 0.4 MG/1 ML VIAL/CARP IV PRN (15:08)
[2025-02-23] MEDS ORDERED: METOCLOPRAMIDE HCL INJ 5 MG/ML 2 ML VIAL IV PRN (15:08)
[2025-02-23] MEDS ORDERED: MAGNESIUM HYDROXIDE SUSP 30 ML UDC PO PRN (15:08)
[2025-02-23] MEDS ORDERED: bisacodyL 10 MG SUPP PR PRN (15:08)
[2025-02-23] MEDS: SODIUM CHLORIDE 0.9% 1,000 ML IV SCH (15:20)
[2025-02-23] MEDS: KETOROLAC TROMETHAMINE 15 MG/ML VIAL IV SCH (15:20)
--- NOTE | 2025-02-23 15:49 | Anesthesiology Progress Note ---
Date of Service February 23, 2025 Anesthesia Post Procedure Vital Signs Vital Signs: Temp Pulse Pulse Resp BP BP Pulse Ox 02/23/25 15:28 36.3 C L 89 16 158/89 H 97 02/23/25 15:05 02/23/25 13:55 82 12 147/84 H 94 02/23/25 13:25 77 18 140/80 98 02/23/25 12:55 77 14 153/69 H 99 02/23/25 12:40 73 14 135/73 100 02/23/25 12:25 69 12 144/89 H 100 02/23/25 12:10 79 16 135/86 96 02/23/25 11:55 36.4 C L 77 16 141/72 H 98 02/23/25 11:45 83 15 125/73 97 02/23/25 11:35 75 13 120/49 L 96 02/23/25 11:27 36.4 C L 78 13 98/59 L 95 02/23/25 08:15 36.7 C 74 18 148/80 H 96 O2 Del Method O2 Flow Rate 02/23/25 15:28 Nasal Cannula 2 02/23/25 15:05 Nasal Cannula 2 02/23/25 13:55 Nasal Cannula 2 02/23/25 13:25 Nasal Cannula 2 02/23/25 12:55 Nasal Cannula 2 02/23/25 12:40 Nasal Cannula 2 02/23/25 12:25 Room Air 02/23/25 12:10 Room Air 02/23/25 11:55 Room Air 02/23/25 11:45 Room Air 02/23/25 11:35 Oxymask 6 02/23/25 11:27 Oxymask 6 02/23/25 08:15 Room Air Pain Intensity Left Knee: Pain Intensity: 4 Left Leg: Pain Intensity: 8 Transfer of Care Handoff Completed per policy Notes Mental Status: alert / awake / arousable and participated in evaluation Nausea / Vomiting: adequately controlled Pain: adequately controlled Airway Patency, RR, SpO2: stable & adequate BP & HR: stable & adequate Hydration State: stable & adequate Neuraxial Anesthesia: was administered and sensory block is resolving Anesthetic Complications: no major complications apparent and Pt Satisfied with anesthetic care
[2025-02-23] MEDS: HYDROmorphone INJ 0.5 MG/0.5 ML SYR IV PRN (16:10)
[2025-02-23] MEDS: ceFAZolin 1000MG 1,000 MG/7.5 ML SYR IV SCH (18:37)
[2025-02-23] MEDS: BACLOFEN 20 MG TAB PO SCH (22:32)
[2025-02-23] MEDS: ASPIRIN 81 MG ECTAB PO SCH (22:32)
[2025-02-23] MEDS: hydrOXYzine HCl 25 MG TAB PO SCH (22:33)
[2025-02-23] MEDS: DOCUSATE SODIUM 100 MG CAP PO SCH (22:33)
[2025-02-23] MEDS: SENNA 8.6 MG TAB PO SCH (22:33)
[2025-02-24 03:00] VITALS: O2SAT 93
--- NOTE | 2025-02-24 06:46 | Orthopedic Progress Note ---
Date of Service February 24, 2025 Assessment & Plan (1) Status post left knee replacement: Overall she is doing very well. She is not having much pain in the left knee. She will be seen by physical therapy today for ambulation and range of motion exercises. The nursing staff can change her dressing after physical therapy. She is on aspirin for DVT prophylaxis. She can be discharged to home later today. She will follow-up with orthopedics in 2 weeks. Ashwin Jennifer was seen and examined at bedside this morning. Overall she is doing fairly well. She is not having much pain in the left knee. She has been up and ambulating to the bathroom. She has no complaints. Review of Systems All systems reviewed & are unremarkable except as noted in HPI & below. Physical Exam On physical exam of the left knee, the dressing is clean and dry. Her leg is out full extension. She has active dorsiflexion plantarflexion of her left ankle.. Results & Data Results & Data Laboratory Results . Diagnostic Findings Postoperative x-rays of the left knee show the prosthesis to be in anatomic alignment without any evidence of fracture, dislocation, or loosening.. PG Care Time/CCT Total # of Minutes Spent Total Time Spent with Patient: Total time spent is greater than 50% in coordination of care (as documented) at patient's floor/unit and/or counseling patient: Coding Level of Care Code 35458 Post Operative Follow-Up Diagnoses Status post left knee replacement Z96.652
--- NOTE | 2025-02-24 06:47 | Discharge Summary ---
Date of Service February 24, 2025 Admission HPI (Per Admitting) Jennifer is a pleasant 75-year-old female who has been dealing with chronic increasing left knee pain. X-ray showed some lateral compartmental arthritis. She is really struggling with lateral joint line pain. She recently lost her mother and her sister. She has been dealing with estate sales. She had injections of her knee with minimal relief. She is to the point where she is almost nonambulatory. She was sent for an MRI. The MRI shows advanced osteoarthritis mostly in the lateral compartment of the left knee. After failed conservative treatment, she has elected to proceed with a left total knee arthroplasty. Admission Exam (Per Admitting) On physical exam of the left knee, she has slight varus deformity. Tenderness palpation of the distal lateral femoral condyle and over the lateral joint line.. Principal Diagnosis Same as "Discharge Diagnosis" noted below under Discharge Instructions. Discharge Exam On physical exam of the left knee, the dressing is clean and dry. Her leg is out full extension. She has active dorsiflexion plantarflexion of her left ankle.. Discharge Data Procedures Performed Operation Date: 02/23/25 10:00 Actual Procedures p Left Total Knee Arthroplasty(Left) - Harvey Oliva DO Ordered Studies 02/23/25 05:00 US - OR guided needle placemen Routine Hospital Course (1) Status post left knee replacement: On February 23, 2025 Jenniefr arrived at [facility] and underwent a left knee replacement without complication. She had a spinal anesthetic. Postoperatively, she was started on aspirin for DVT prophylaxis and transferred to the general orthopedic floors. Her hospital course was uneventful. On postop day #1, her vital signs were stable and her pain was well-controlled. She was able to participate well with physical therapy doing ambulation and range of motion exercises. She was then discharged to home. She will follow-up with orthopedics in 2 weeks. PG Care Time/CCT Total # of Minutes Spent Total Time Spent with Patient: Total time spent is greater than 50% in coordination of care (as documented) at patient's floor/unit and/or counseling patient: Discharge Plan Discharge Items Patient Disposition: Home - Self-Care Reason For Visit: Left Knee Arthritis Discharge Diagnosis: Status post left knee replacement Activity: Per Instructions section Non-emergency contact: Surgeon Call non-emergency contact if: your wound has increased redness and your wound has increased drainage Follow-up/Referrals: Gina Yin DO [Primary Care Provider] - Diet: Regular Addtl Attending Provider Instructions: Activity and Therapy Recommendations: * If you are using [facility] then therapy will be provided at your home until they feel you have accomplished all of your goals. * If you are using [facility] then Physical Therapy will be provided until they feel you are ready to start Outpatient Physical Therapy. * If you are not using home therapy then Outpatient Physical Therapy should start about 3-5 days from your day of surgery. Therapy will last about 6-10 weeks * It is important not to put a pillow under your knee when you are relaxing or sleeping. It is just as important to make sure you are getting your knee perfectly straight as it is to regain your knee bend. * You were shown a series of exercises in the hospital. Do these exercises three times each day including the exercises you were shown in physical therapy. * Get up and walk several times each day. For the first four weeks, try not to stand or walk for more than one hour at a time. If you do stand or walk for more than one hour, you will not hurt anything, but your leg will likely swell. * As you feel comfortable, you may change from the walker or crutches to a cane and then to independent walking. Medications: * Narcotic You will likely be sent home from the hospital with a prescription for the narcotic pain medication that worked best throughout your stay. * Cefadroxil -take the antibiotic twice a day for 10 days to help prevent infection. * Aspirin Most patients will be required to take Aspirin 81mg twice a day for 6 weeks after surgery. This is obtained [id number] and a prescription is not necessary. * Other medications may be prescribed for specific circumstances. If you have any questions, please call the office at . * Resume previous home medications unless otherwise instructed TEDs/Elastic Stockings: The white elastic stockings help limit swelling and prevent blood clots from forming in your legs.~ The more you wear them, the more they work. Wear them for 2 weeks. Dressing Care: The dressing can be changed after physical therapy on postop day #1. Daily dry dressing changes for a few days, especially if the incision is still draining some. If the incision is not draining then you may leave the suman open to air. If there is a little bit of drainage or if the suman are getting stuck on your clothing then cover the incision with a dry dressing. The suman will be removed at your 2 week follow-up appointment. Showering: You may shower 5 days from the day of surgery as long as the incision is no longer draining. You may shower with the suman exposed. Let soapy water run over the suman and pat them dry. Do not scrub or soak the incision. Diet: You may resume your previous diet. Things To Watch For: * Drainage from the incision site that occurs more than one week after your surgery. * Increased redness at the incision site. * Fever above 102 degrees Fahrenheit. * Unusual chest pain or shortness of breath. * Call [facility] at with any of the above problems Follow-Up Visit: Follow-up with Dr. Oliva's office 2-3 weeks after your day of surgery. We will remove your suman and answer any questions. If you have any additional questions or concerns, Dr Oliva is usually in the office at the same time and will be available An appointment was probably scheduled when you signed-up for surgery in the office. If you have any questions call Office Instructions: More detailed instructions as well as Frequently Asked Questions were provided in a folder by our office when you signed-up for surgery. Please review these instructions when you get home. If you have any further questions or concerns, please feel free to call the office at [phone] Pending Studies at Discharge: No Stand-Alone Forms: My [facility] Medications and DC Order Prescriptions: New cefadroxil 500 mg capsule 500 mg PO BID 10 Days Qty: 20 0RF aspirin [Adult Aspirin Regimen] 81 mg tablet,delayed release (DR/EC) 81 mg PO BID Qty: 84 0RF Continued cholecalciferol (vitamin D3) 1,000 unit (25 mcg) tablet 1,000 units PO QAM Rx Instructions: OTC DIRECTED fluoxetine [Prozac] 40 mg Capsule 40 mg PO QAM hydroxyzine HCl 50 mg Tablet 100 mg PO HS baclofen 20 mg tablet 40 mg PO HS rosuvastatin 10 mg tablet 40 mg PO QAM fluoxetine 20 mg capsule 20 mg PO QAM Patient Comments: takes with 40mg to equal 60mg hydrochlorothiazide 25 mg tablet 25 mg PO BID PRN (Reason: swelling) lorazepam 0.5 mg Tablet 0.25 mg PO DAILY PRN (Reason: Anxiety) ibuprofen 100 mg Tablet 200 mg PO Q6H PRN (Reason: Pain) phentermine 37.5 mg Tablet 37.5 mg PO DAILY Rx Instructions: must administer 30 minutes before or 1-2 hours after breakfast oxycodone 5 mg tablet 5 mg PO Q6 PRN (Reason: pain) Qty: 30 0RF Discharge Orders: Discharge Order (Routine); Ordered 02/24/25 Ordered By: Harvey Oliav Admission Data Admit Date/Time: 02/23/25 11:28 Attending Provider: Harvey Oliva Admit Provider: Harvey Oliva Primary Care Provider: Gina Yin
[2025-02-24] MEDS: dexAMETHasone 4 MG TAB PO SCH (08:04)
[2025-02-24] MEDS: ROSUVASTATIN CALCIUM 20 MG TAB PO SCH (08:05)
[2025-02-24] MEDS: FLUoxetine HCL 20 MG CAP PO SCH ×2 (08:06→08:07)
[2025-02-24] MEDS: MULTIVITAMIN TAB PO SCH (08:07)
[2025-02-24 08:57] VITALS: BP 127/65; PULSE 84; RESP 18; TEMP 98.2
[2025-02-24] MEDS: oxyCODONE HCL IR 5 MG TAB (IMMEDIATE RELEASE) PO PRN (09:40)
== END 2025-02-24 12:44 | disposition home or self-care (01) ==
LOC: 3W 08:06 → ASU 08:06